=== PATIENT | female | born 1970 | race Caucasian/White ===

== ENCOUNTER 2016-12-13 13:30 | Emergency (ER) | payer BC ==
[2016-12-13 14:03] VITALS: BP 129/89; PULSE 70; TEMP 98.8
--- NOTE | 2016-12-13 14:03 | PDOC ---
History of Present Illness - General History Source: Patient, Old Records Exam Limitations: No Limitations - History of Present Illness Initial Comments: 12/13/16 15:35 The patient is a 46 year old female with a past medical history of fibromyalgia , HLD, TMJ, and RA, who presents to the emergency department today s/p mechanical fall with nausea and severe diffuse heachache. The patient stated that this morning, she heard her son yell, ran out of bed partially awake, slipped on a wet floor and hit her head. The patient is unsure if she lost consciousness, but awoke on the floor feeling dazed and not remembering falling. The patient noted she was able to get up and was ambulatory. The patient stated that she drove her son to school and then went back to sleep. The patient went to her regular neurology appointment for fibromyalgia. The neurologist advised her to go the the emergency department to check for a head bleed. <Koby Rocha - Last Filed: 12/13/16 16:36> <Sanjay Francis - Last Filed: 12/13/16 16:51> - General Chief Complaint: Injury Stated Complaint: CONCUSSION Time Seen by Provider: 12/13/16 14:02 Past History <Koby Rocha - Last Filed: 12/13/16 16:36> - Past Medical History Anemia: No Asthma: No Cancer: No Cardiac Disorders: No CVA: No COPD: No CHF: No Dementia: No Diabetes: No GI Disorders: Yes (IBS) Disorders: No HTN: No Hypercholesterolemia: No Liver Disease: No Psychiatric Problems: Yes (ANXIETY) Seizures: No Thyroid Disease: No - Surgical History Abdominal Surgery: No Appendectomy: No Cardiac Surgery: No Cholecystectomy: No Lung Surgery: No Neurologic Surgery: No Orthopedic Surgery: No - Psycho/Social/Smoking Cessation Hx Anxiety: Yes Suicidal Ideation: No Smoking Status: No Smoking History: Current every day smoker Have you smoked in the past 12 months: Yes Number of Cigarettes Smoked Daily: 10 'Breaking Loose' booklet given: 02/14/14 Hx Alcohol Use: No Drug/Substance Use Hx: No Substance Use Type: None Hx Substance Use Treatment: No <Sanjay Francis - Last Filed: 12/13/16 16:51> - Past Medical History Allergies/Adverse Reactions: Allergies Allergy/AdvReac Type Severity Reaction Status Date / Time codeine [Codeine] Allergy Severe Rash Verified 01/18/15 15:06 Home Medications: Ambulatory Orders Sertraline HCl [Zoloft -] 250 mg PO DAILY 02/11/14 Meloxicam [Mobic -] 15 mg PO HS 10/29/14 Clonazepam [KlonoPIN] 0.5 mg PO DAILY 01/18/15 Oxycodone HCl 5 mg PO Q4H PRN 02/21/15 Atorvastatin Ca [Lipitor] 10 mg PO HS 12/13/16 Chlorzoxazone [Lorzone] 375 mg PO TID PRN 12/13/16 Clonazepam [Klonopin] 1 mg PO HS 12/13/16 Gabapentin [Neurontin -] 400 mg PO BID 12/13/16 Oxymorphone HCl [Opana ER] 30 mg PO DAILY 12/13/16 Review of Systems - Review of Systems Comments:: 12/13/16 15:45 CONSTITUTIONAL: Absent: Fever, Chills, Diaphoresis, Generalized Weakness, Malaise, Loss of Appetite HEENT: Absent: Rhinorrhea, Nasal Congestion, Throat Pain, Throat Swelling, Difficulty Swallowing, Mouth Swelling, Ear Pain. CARDIOVASCULAR: Absent: Chest Pain, Syncope, Palpitations, Irregular Heart Rate, Lightheadedness , Peripheral Edema RESPIRATORY: Absent: Cough, Shortness of Breath, SOB with Exertion, Orthopnea, Wheezing, Stridor, Hemoptysis GASTROINTESTINAL: Present: Nausea Absent: Abdominal pain, Abdominal Distension, Nausea, Diarrhea, Constipation, Melena, Hematochezia MUSCULOSKELETAL: Present: Neck Pain Absent: Joint Swelling, Back pain. NEUROLOGIC: Present: Headache. Absent: Paresthesias, Focal weakness, Vertigo, Lightheadedness, Unsteady Gait, Seizure, Mental Status Changes, Incontinence PSYCHIATRIC: Absent: Anxiety, Depression <Koby Rocha - Last Filed: 12/13/16 16:36> *Physical Exam - Vital Signs Last Vital Signs Temp Pulse Resp BP Pulse Ox 98.8 F 70 16 129/89 97 12/13/16 13:51 12/13/16 13:51 12/13/16 13:51 12/13/16 13:51 12/13/16 13:51 - Physical Exam Comments: 12/13/16 15:43 GENERAL: The patient is awake, alert, and fully oriented, in no acute distress. HEAD: Normal with no signs of trauma. No bruising, swelling, lacerations, or abrasions. EYES: Pupils equal, round and reactive to light, extraocular movements intact, sclera anicteric, conjunctiva clear. ENT: Ears normal, nares patent, oropharynx clear without exudates. Moist mucous membranes. NECK: Normal range of motion but with pain on movement, supple without lymphadenopathy, JVD, or masses. LUNGS: Breath sounds equal, clear to auscultation bilaterally. No wheezes, and no crackles. HEART: Regular rate and rhythm, normal S1 and S2 without murmur, rub or gallop. ABDOMEN: Soft, nontender, normoactive bowel sounds. No guarding, no rebound. No masses. EXTREMITIES: Normal range of motion, no edema. No clubbing or cyanosis. No cords , erythema, or tenderness. SKIN: Warm, Dry, normal turgor, no rashes or lesions noted. NEURO: Mental status: The patient is oriented x3. Cranial nerves: Cranial nerves II through XII are intact Motor: The upper extremities are 5 over 5 in all muscle groups. The lower extremities are 5 over 5 in all muscle groups. Sensation: Sensation is intact to light touch throughout. Cerebellar: Czxpbn-[id number]-ghwt is normal in both upper extremities. Heel-knee- rivera is normal in both lower extremities. Reflexes: 2+ and symmetric in the upper and lower extremities. <Koby Rocha - Last Filed: 12/13/16 16:36> Medical Decision Making - Medical Decision Making 12/13/16 16:47 Patient is a 46-year-old woman who presents after a slip and fall at home with a head injury this morning. She had a loss of consciousness and some brief confusion but then was able to go about her normal activities. She presented to her neurologist for follow-up of her fibromyalgia and was noted to have these symptoms after head injury. She has diffuse headache as well as some neck pain. On examination, there was no visible trauma to the head. She had diffuse neck pain, mostly in the lateral regions, but also with range of motion. Based upon her progressive headache after head injury, a CT scan of the head and cervical spine was performed. They were both normal on radiology read as well as upon my review. Impression: Cerebral concussion without fracture or bleed. Cervical neck sprain without fracture or dislocation. Plan: Patient is artery on heavy-duty pain medications at home for fibromyalgia. She will take nonsteroidals in addition as needed. She will follow-up with her neurologist. 12/13/16 16:51 The scribe's documentation has been prepared under my direction and personally reviewed by me in its entirety. I have confirmed that the note above accurately reflects all work, treatment, procedures, and medical decision- making performed by me. <Sanjay Francis - Last Filed: 12/13/16 16:51> *DC/Admit/Observation/Transfer - Attestations Scribe Attestion: 12/13/16 16:00 Documentation prepared by Koby Rocha, acting as infertility medical assistant for Sanjay Francis MD. <Koby Rocha - Last Filed: 12/13/16 16:36> - Discharge Dispostion Admit: No <Sanjay Francis - Last Filed: 12/13/16 16:51> Diagnosis at time of Disposition: Cerebral concussion Qualifiers: Encounter type: initial encounter Loss of consciousness presence/duration: with LOC of 30 min or less Qualified Code(s): S06.0X1A - Concussion with loss of consciousness of 30 minutes or less, initial encounter - Discharge Dispostion Disposition: HOME Condition at time of disposition: Stable - Referrals Referrals: Dick Hollins MD [Primary Care Provider] - - Patient Instructions Printed Discharge Instructions: DI for Closed Head Injury Additional Instructions: Today you were evaluated after a head and neck injury. The CT scan of the head and neck is normal. You are likely having symptoms of concussion, including headache and neck stiffness. Continue to take your pain medications at home. Rest and relax until the pain improves. Follow-up with your neurologist. For any severe symptoms, you can return to the emergency department.
[2016-12-13] MEDS ORDERED: OXYCODONE/APAP 5/325MG COMBO TABLET PO ONE (16:23)
[2016-12-13] MEDS ORDERED: NAPROXEN 375 MG TABLET (FP) PO ONE (16:23)
[2016-12-13] MEDS ORDERED: NAPROXEN 375 MG TABLET (FP) ONE (16:29)
[2016-12-13] MEDS ORDERED: OXYCODONE/APAP 5/325MG COMBO TABLET ONE (16:29)
== END 2016-12-13 16:54 | disposition home or self-care (01) ==
LOC: FER 13:30
DX: S06.0X1A Concussion with loss of consciousness of 30 minutes or less, initial encounter (principal); W18.39XA Other fall on same level, initial encounter; Y93.89 Activity, other specified; Y92.009 Unspecified place in unspecified non-institutional (private) residence as the place of occurrence of the external cause; M79.7 Fibromyalgia; F41.9 Anxiety disorder, unspecified; F17.210 Nicotine dependence, cigarettes, uncomplicated
CPT/HCPCS: 70450-TC; 72125-TC; 99282-25

== ENCOUNTER 2017-10-03 08:18 | Inpatient (IN) | payer BC ==
--- NOTE | 2017-10-03 08:46 | PDOC ---
History of Present Illness - History of Present Illness Initial Comments: 10/03/17 09:15 The patient is a 47 year old female with a history of Fibromyalgia, IBS, anxeity who presents for evaluation of right sided chest pain with associated SOB. The patient reports that 1 day ago she received trigger point injections for her fibromyalgia along her right sided upper back and right shoulder. Over the night, she states that she developed right sided chest pain that she describes as a heaviness and pressure worse with deep inspiration and with some radiation into her neck. She denies having pain similar to this in the past. She denies any recent long travel, leg swelling, control use, or history of DVT/PE. She denies fevers, chills, cough, vomiting, abdominal pain, or changes with bowel movements or urination. <Kingsley Hyde - Last Filed: 10/03/17 12:04> <Kwasi Ellis - Last Filed: 10/05/17 15:27> - General Chief Complaint: Chest Pain Stated Complaint: CHEST PAIN Time Seen by Provider: 10/03/17 08:28 Past History - Past Medical History Anemia: No Asthma: No Cancer: No Cardiac Disorders: No CVA: No COPD: No CHF: No Dementia: No Diabetes: No GI Disorders: Yes (IBS) Disorders: No HTN: No Hypercholesterolemia: No Liver Disease: No Psychiatric Problems: Yes (ANXIETY) Seizures: No Thyroid Disease: No Other medical history: FIBROMYALGIA - Surgical History Abdominal Surgery: No (CYST REMOVED FROM OVARY) Appendectomy: No Cardiac Surgery: No Cholecystectomy: No Lung Surgery: No Neurologic Surgery: No Orthopedic Surgery: No - Suicide/Smoking/Psychosocial Hx Smoking Status: No Smoking History: Current every day smoker Have you smoked in the past 12 months: Yes Number of Cigarettes Smoked Daily: 10 Information on smoking cessation initiated: No 'Breaking Loose' booklet given: 02/14/14 Hx Alcohol Use: No Drug/Substance Use Hx: No Substance Use Type: None Hx Substance Use Treatment: No <Kingsley Hyde - Last Filed: 10/03/17 12:04> <Kwasi Ellis - Last Filed: 10/05/17 15:27> - Past Medical History Allergies/Adverse Reactions: Allergies Allergy/AdvReac Type Severity Reaction Status Date / Time codeine [Codeine] Allergy Severe Rash Verified 10/03/17 08:23 Home Medications: Ambulatory Orders Sertraline HCl [Zoloft -] 250 mg PO DAILY 02/11/14 Clonazepam [KlonoPIN] 0.5 mg PO DAILY 01/18/15 Chlorzoxazone [Lorzone] 500 mg PO BID PRN 12/13/16 Clonazepam [Klonopin] 1 mg PO HS 12/13/16 Gabapentin [Neurontin -] 400 mg PO BID 12/13/16 Oxymorphone HCl [Opana ER] 30 mg PO BID 12/13/16 Review of Systems - Review of Systems Comments:: 10/03/17 09:21 Constitutional: No fevers, chills, fatigue, malaise HEENT: No Rhinorrhea, nasal congestion, visual changes Cardiovascular: Chest pain. No syncope, palpitations, lightheadedness Respiratory: SOB. No Cough, Hemoptysis, Gastrointestinal: Nausea. No Abdominal pain, Vomiting, Constipation, Diarrhea, Melena Genitourinary: No Dysuria, Frequency, Urgency, Hesitancy, Hematuria, Flank pain Musculoskeletal: No Myalgia, arthralgia Skin: No rashes, bruising, pallor Neurologic: No Headache, Dizziness, Numbness, Weakness, or Tingling Psychiatric: No Hallucinations. No SI or HI <Kingsley Hyde - Last Filed: 10/03/17 12:04> *Physical Exam - Vital Signs Last Vital Signs Temp Pulse Resp BP Pulse Ox 98.2 F 65 18 146/87 97 10/03/17 08:19 10/03/17 08:19 10/03/17 08:19 10/03/17 08:19 10/03/17 08:19 - Physical Exam Comments: 10/03/17 09:22 General Appearance: Nourished. No Apparent Distress HEENT: EOMI, TYLOR. No Pharyngeal Erythema, Tonsillar Exudate, Tonsillar Erythema Neck: No Cervical Lymphadenopathy Respiratory/Chest: Lungs Clear, Decreased breath sounds on the right. No Crackles, Rales, Rhonchi, Wheezing Cardiovascular: Regular Rhythm, Regular Rate. No Murmur, Gallops, Rubs Gastrointestinal/Abdominal: Normal Bowel Sounds, Soft. No Guarding, Rebound, Tenderness Musculoskeletal: No CVA Tenderness Extremity: Normal Capillary Refill Integumentary: Normal Color, Dry, Warm Neurologic: Fully Oriented, Alert, Normal Mood/Affect, Normal Response, <Kingsley Hyde - Last Filed: 10/03/17 12:04> - Vital Signs Last Vital Signs Temp Pulse Resp BP Pulse Ox 98.8 F 47 L 18 134/71 100 10/05/17 10:00 10/05/17 10:00 10/05/17 10:00 10/05/17 10:00 10/04/17 21:00 <Kwasi Ellsi - Last Filed: 10/05/17 15:27> Heart Score/ECG Review #1 ECG reviewed & interpreted by me at: 09:41 General ECG Interpretation: Sinus Rhythm, Normal Rate, Normal Intervals, No acute ischemic changes Compared to previous ECG there are: No significant change <Kingsley Hyde - Last Filed: 10/03/17 12:04> ED Treatment Course - LABORATORY CBC & Chemistry Diagram: 10/03/17 08:55 10/03/17 08:55 <Kingsley Hyde - Last Filed: 10/03/17 12:04> - LABORATORY CBC & Chemistry Diagram: 10/04/17 06:30 10/04/17 06:30 - ADDITIONAL ORDERS Additional order review: 10/03/17 08:55 RBC 4.91 MCV 87.8 MCHC 33.4 RDW 13.8 MPV 9.1 D Neutrophils % 88.2 H D Lymphocytes % 9.4 D Monocytes % 1.9 L Eosinophils % 0.0 D Basophils % 0.5 - RADIOLOGY Radiology Studies Ordered: Category Date Time Status PLEURAL DRAIN (CHEST TUBE) W [RADS] Stat Radiology 10/03/17 11:55 Taken - Medications Given in the ED: ED Medications Discontinued Medications Generic Name Dose Route Start Last Admin Trade Name Jovannyq PRN Reason Stop Dose Admin Acetaminophen 975 mg 10/03/17 11:14 10/03/17 11:21 Tylenol - PO 10/03/17 11:15 975 mg ONCE ONE Administration Hydromorphone HCl 0.5 mg 10/03/17 11:24 10/03/17 11:27 Dilaudid Injection - IVPUSH 10/03/17 11:25 0.5 mg ONCE ONE Administration Hydromorphone HCl 0.5 mg 10/03/17 14:10 10/03/17 14:15 Dilaudid Injection - IVPUSH 10/03/17 14:11 0.5 mg ONCE ONE Administration Hydromorphone HCl 1 mg 10/04/17 09:06 10/05/17 06:14 Dilaudid Injection - IVPB 1 mg Q3H PRN Administration PAIN Lorazepam 0.5 mg 10/03/17 12:44 10/03/17 13:01 Ativan Injection - IVPUSH 10/03/17 12:45 0.5 mg ONCE ONE Administration Morphine Sulfate 4 mg 10/03/17 09:03 10/03/17 09:16 Morphine Injection - IVPUSH 10/03/17 09:04 4 mg ONCE ONE Administration Morphine Sulfate 1 mg 10/03/17 12:48 10/03/17 23:07 Morphine Sulfate IVPUSH 1 mg Q4H PRN Administration PAIN Sertraline HCl 150 mg 10/04/17 10:00 10/04/17 09:24 Zoloft - PO 150 mg DAILY TONY Administration Sertraline HCl 100 mg 10/04/17 10:30 10/04/17 15:51 Zoloft - PO 10/04/17 10:31 100 mg ONCE ONE Administration <Kwasi Ellis - Last Filed: 10/05/17 15:27> Medical Decision Making - Medical Decision Making 10/03/17 09:22 The patient is a 47 year old female with a history of Fibromyalgia, IBS, anxeity who presents for evaluation of right sided chest pain with associated SOB. Differential includes but is not limited to: Pneumothorax, Pneumonia, PE, ACS, infectious, metabolic derangement. Given the patient's described pain of chest heaviness worse with inspiration as well as some decreased breath sounds on the right, we are concerned for a possible pneumothorax and will obtain a chest plain film to evaluate. We have a low suspicion for ACS given the patient 's symptoms and a normal EKG done in triage. We also have a low suspicion for PE at this time given her risk factors. We will obtain a cbc, cmp, troponin, inr, and D-dimer to evaluate further. We will treat her pain with morphine and continue to monitor and reassess. 10/03/17 11:25 Chest plain film demonstrates moderate pneumothorax without tension as read by our radiologist. CBC demonstrates a elevated wbc to 11.2. cmp, troponin, inr are unremarkable. D-dimer is mildly elevated to 324 although we have a very low suspicion for PE and have a good explanation for the patient's chest pain and SOB given her pneumothorax. We discussed the case with Thoracic surgery given that only the lower lung appears collapsed due to the pneumothorax and complicates the placement of a pig tail catheter. They recommended that IR should place the catheter to avoid complications and we agreed with this plan. The patient will require admission for further management and IR placement of a pig tail catheter. We discussed the results and the plan with the patient who voiced understanding and is agreeable with the plan. 10/03/17 11:39 We discussed with IR who reviewed the patient's images and will place the chest tube. 10/03/17 12:04 We discussed the case with Dr. Crisostomo who accepted the patient for admission. <Kingsley Hyde - Last Filed: 10/03/17 12:04> - Medical Decision Making 10/05/17 15:27 CRITICAL CARE DOCUMENTATION: I spent ~35 minutes of Critical Care time, excluding separately billable procedures, involving high complexity decision making to assess, manipulate and support vital system function(s) to treat single or multiple vital organ system failure and/or to prevent further life threatening deterioration of the patient' s condition. <Kwasi Ellis - Last Filed: 10/05/17 15:27> *DC/Admit/Observation/Transfer - Discharge Dispostion Admit: Yes <Kingsley Hyde - Last Filed: 10/03/17 12:04> <Kwasi Ellis - Last Filed: 10/05/17 15:27> Diagnosis at time of Disposition: Pneumothorax Qualifiers: Pneumothorax type: postprocedural Qualified Code(s): J95.811 - Postprocedural pneumothorax - Discharge Dispostion Condition at time of disposition: Stable
--- NOTE | 2017-10-03 08:56 | PDOC ---
Attending Attestation - Resident Resident Name: Kingsley Hyde - ED Attending Attestation I have performed the following: I have examined & evaluated the patient, The case was reviewed & discussed with the resident, I agree w/resident's findings & plan, Exceptions are as noted - HPI HPI: 10/03/17 10:51 47y F hx of fibromyalgia, ibs, anxiety, presents with R sided cp and sob dior tis pleuritic in nature, pt is s/p trigger point injections yesteday. on exam pt has decreased breath sounds in the right base, no respiratory distress, no significant focal tenderness. pt anxious appearing, but in no acute respiratory distress. cxr noted for right lower lobar ptx will dw CT surgery regarding best course forward -? posisble pig tail here vs in IR due to location - Physicial Exam PE: 10/05/17 09:11 see above - Medical Decision Making 10/03/17 11:26 will admit pt for IR placement of pigtail based on location of pneumothorax Heart Score/ECG Review - ECG Impressions Comment:: 10/03/17 08:39 Twelve-lead EKG was performed and reviewed by me. There is normal sinus rhythm with a normal rate. rate of 60 The axis is normal. The intervals are normal. There is normal R wave progression There are no ST or T wave abnormalities. Impression: Normal twelve-lead EKG
[2017-10-03] MEDS ORDERED: morphine CARPU-JECT 4 MG/1 ML DISP.SYRIN IVPUSH ONE (09:03)
[2017-10-03 09:08] LABS: URINE APPEARANCE CLEAR; URINE BILIRUBIN NEGATIVE (NEGATIVE); URINE BLOOD NEGATIVE (NEGATIVE); URINE COLOR YELLOW; URINE GLUCOSE (UA) NEGATIVE (NEGATIVE); URINE KETONE NEGATIVE (NEGATIVE); URINE NITRITE NEGATIVE (NEGATIVE); URINE PROTEIN NEGATIVE (NEGATIVE); URINE UROBILINOGEN NEGATIVE mg/dL (0.2-1.0)
[2017-10-03] MEDS ORDERED: morphine SULFATE 4 MG/ML VIAL ONE ×2 (09:09→16:07)
[2017-10-03 09:21] LABS: BASOPHIL 0.5 % (0-2.0); MCH 29.3 pg (25.7-33.7); MCHC 33.4 g/dl (32.0-36.0); MEAN CELL VOLUME 87.8 fl (80-96); MEAN PLT VOLUME 9.1 fl (7.5-11.1); NEUTROPHILS 88.2 % (42.8-82.8); PLATELET COUNT 227 K/MM3 (134-434); RDW 13.8 % (11.6-15.6); WHITE BLOOD COUNT 11.2 K/mm3 (4.0-10.0)
[2017-10-03 09:30] LABS: ALBUMIN 3.8 g/dl (3.4-5.0); ANION GAP 11 (8-16); BILIRUBIN,TOTAL 0.4 mg/dL (0.2-1.0); CALCIUM 9.3 mg/dL (8.5-10.1); CO2 24 mmol/L (21-32); CREATININE 0.7 mg/dL (0.55-1.02); GLUCOSE,RANDOM 124 mg/dL (74-106); SGOT/AST 21 U/L (15-37); SGPT/ALT 41 U/L (12-78); TOT PROT 7.3 g/dl (6.4-8.2)
[2017-10-03 09:33] LABS: ALK PHOS 60 U/L (45-117); CPK 90 IU/L (26-192); TROPONIN I < 0.02 ng/ml (0.00-0.05)
--- NOTE | 2017-10-03 09:40 | EKG ---
Test Reason : Blood Pressure : / mmHG Vent. Rate : 060 BPM Atrial Rate : 060 BPM P-R Int : 154 ms QRS Dur : 082 ms QT Int : 450 ms P-R-T Axes : 028 065 073 degrees QTc Int : 450 ms NORMAL SINUS RHYTHM NORMAL ECG WHEN COMPARED WITH ECG OF 29-OCT-2014 20:10, NO SIGNIFICANT CHANGE WAS FOUND Confirmed by JAMILAH WILD MD ([id number]) on 10/03/2017 9:39:34 AM Referred By: Confirmed By:JAMILAH WILD MD
[2017-10-03 09:46] LABS: INR 0.96 (0.82-1.09); PROTHROMBIN TIME (PATIENT) 10.8 SEC (9.98-11.88)
[2017-10-03 09:49] LABS: ACTIVATED PTT 30.4 SECONDS (26.9-34.4)
[2017-10-03] MEDS ORDERED: ACETAMINOPHEN 325 MG TABLET (FP) PO ONE (11:14)
[2017-10-03] MEDS ORDERED: ACETAMINOPHEN 325 MG TABLET (FP) ONE (11:22)
[2017-10-03] MEDS ORDERED: HYDROmorphone HCL CARPU-JECT 1 MG/1 ML DISP.SYRIN IVPUSH ONE ×2 (11:24→14:10)
[2017-10-03] MEDS ORDERED: HYDROmorphone HCL CARPU-JECT 1 MG/1 ML DISP.SYRIN ONE ×2 (11:29→14:10)
[2017-10-03] MEDS ORDERED: CHLORZOXAZONE 375 MG PO PRN (12:46)
[2017-10-03] MEDS ORDERED: LORazepam 2 MG/ML SDV VIAL ONE (12:47)
[2017-10-03] MEDS ORDERED: ONDANSETRON 4 MG/2 ML VIAL IVPUSH PRN (12:48)
--- NOTE | 2017-10-03 12:51 | HP ---
Admitting History and Physical - Primary Care Physician PCP: Dick Hollins - Admission Chief Complaint: My back and chest hurts History of Present Illness: Ms Galvan is a pleasant 47 year old female who comes in with chest and back pain. She has a history of fibromyalgia and received pressure point injections yesterday. She was feeling well and went home, but at night began to develop pain in her back. Throughout the night the pain worsened and began to radiate to her chest and neck. Then she became short of breath secondary to feeling like she cannot take a full breath. Because of that she came in. She denies fevers, chills, lightheadedness, dizziness, passing out, nausea, vomiting, abdominal pain, diarrhea, constipation, difficulty or pain on urination, or swelling. - Past Medical History Rheumatology: Yes: Fibromyalgia - Past Surgical History Past Surgical History: Yes: Tonsillectomy - Smoking History Smoking history: Current every day smoker Have you smoked in the past 12 months: Yes Aproximately how many cigarettes per day: 10 - Alcohol/Substance Use Hx Alcohol Use: No History of Substance Use: reports: None - Social History ADL: Independent History of Recent Travel: No Home Medications - Allergies Allergies/Adverse Reactions: Allergies Allergy/AdvReac Type Severity Reaction Status Date / Time codeine [Codeine] Allergy Severe Rash Verified 10/03/17 08:23 - Home Medications Home Medications: Ambulatory Orders Sertraline HCl [Zoloft -] 250 mg PO DAILY 02/11/14 Meloxicam [Mobic -] 15 mg PO HS 10/29/14 Clonazepam [KlonoPIN] 0.5 mg PO DAILY 01/18/15 Oxycodone HCl 5 mg PO Q4H PRN 02/21/15 Atorvastatin Ca [Lipitor] 10 mg PO HS 12/13/16 Chlorzoxazone [Lorzone] 375 mg PO TID PRN 12/13/16 Clonazepam [Klonopin] 1 mg PO HS 12/13/16 Gabapentin [Neurontin -] 400 mg PO BID 12/13/16 Oxymorphone HCl [Opana ER] 30 mg PO DAILY 12/13/16 Family Disease History - Family Disease History Family Disease History: Diabetes: Mother, Heart Disease: Father, Mother, Other: Sister (MS) Review of Systems Findings/Remarks: Full review of systems obtained, as per HPI and otherwise negative Physical Examination Vital Signs: Vital Signs Temperature 36.8 C 10/03/17 08:19 Pulse Rate 55 L 10/03/17 12:12 Respiratory Rate 18 10/03/17 12:12 Blood Pressure 131/81 10/03/17 12:12 O2 Sat by Pulse Oximetry (%) 100 10/03/17 12:12 Constitutional: Yes: Well Nourished, No Distress, Calm Eyes: Yes: Conjunctiva Clear, EOM Intact, PERRL HENT: Yes: Atraumatic, Normocephalic Cardiovascular: Yes: Regular Rate and Rhythm. No: Gallop, Murmur, Rub Respiratory: Yes: Regular, CTA Bilaterally, Other (decreased breath sounds right base). No: Rales, Rhonchi, Wheezes Gastrointestinal: Yes: Normal Bowel Sounds, Soft. No: Distention, Tenderness Extremities: Yes: WNL Edema: No Labs: CBC, BMP 10/03/17 08:55 10/03/17 08:55 Imaging - Results Chest X-ray: Report Reviewed, Image Reviewed Problem List - Problems (1) Pneumothorax Assessment/Plan: -suspect secondary to injections yesterday, but possibly spontaneous -chest tube today -100% NRB to help with resorption -pulmonary consult Code(s): J93.9 - PNEUMOTHORAX, UNSPECIFIED Qualifiers: Pneumothorax type: postprocedural Qualified Code(s): J95.811 - Postprocedural pneumothorax; J95.811 - Postprocedural pneumothorax (2) Fibromyalgia Assessment/Plan: -continue home regimen Code(s): M79.7 - FIBROMYALGIA
[2017-10-03 13:40] LABS: URINE LEUK ESTERASE Negative (NEGATIVE)
--- NOTE | 2017-10-03 15:11 | CONSULT ---
Consult Consult Specialty:: Thoracic Surgery Referred by:: ED Reason for Consultation:: Right pneumothorax - History of Present Illness Chief Complaint: Shortness of breath History of Present Illness: A 47-year-old female with history of fibromyalgia and chronic tobacco use who presented to [facility] with complaints of worsening right chest pain/pressure, SOB and KIRK. She reports that she developed her respiratory symptoms after trigger point injection for her fibromyalgia yesterday. Her workup including chest x-ray showed right pneumothorax. Subsequently she underwent pigtail catheter placement per IR. A repeat cxr showed resolution of right pneumothorax. She denies fever, chills, cough, hemoptysis and sputum production. 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: Alzheimer's, CVA, Dementia, Migraine, Multiple Sclerosis, Peripheral Neuropathy, Parkinson's, Seizure, Syncope, TIA, Vertigo, Other Cardio/Vascular: No: AFIB, Aneurysm, Aortic Insufficiency, Aortic Stenosis, CAD , CHF, Deep Vein Thrombosis, HTN, Hyperlipdemia, WI, Mitral Insufficiency, Mitral Stenosis, Murmur, Pulmonary Hypertension, Other Pulmonary: No: Asthma, Bronchitis, Cancer, COPD, O2 Dependent, Pneumonia, Previously Intubated, Pulmonary Embolus, Pulmonary Fibrosis, Sleep Apnea, Other Gastrointestinal: Yes: Other (IBS) Hepatobiliary: No: Cirrhosis, Cholelithiasis, Cholecystitis, Choledocholithiasis , Hepatitis A, Hepatitis B, Hepatitis C, Other Renal/: Yes: UTI Reproductive: No: Ectopic , Endometriosis, Fibroids, PID, Polycystic Ovary Syndrome, Postmenopausal, Other Heme/Onc: No: Anemia, B12 Deficiency, Bleeding Disorder, Cancer, Current Chemotherapy, Current Radiation Therapy, Hemochromatosis, Hypercoaguable State, Myeloproliferative Synd, Sickle Cell Disease, Sickle Cell Trait, Thrombocytopenia, Other Infectious Disease: No: AIDS, C-Diff, Herpes Zoster, HIV, MRSA, STD's, Tuberculosis, VREF, Other Psych: No: Addictions, Anxiety, Bipolar, Depression, Panic, Psychosis, Schizophrenia, Other Musculoskeletal: No: Bursitis, Chronic low back pain, Hemiparesis, Hemiplegia, Osteoarthritis, Paraplegia, Other Rheumatology: Yes: Fibromyalgia ENT: No: Allergic Rhinitis, Sinusitis, Other Endocrine: No: Santy's Disease, Sofia's Disease, Diabetes Insipidus, Diabetes Mellitus, Hyperparathyroidism, Hyperthyroidism, Hypothyroidism, Osteopenia, SIADH, Other Dermatology: No: Basal Cell, Cellulitis, Eczema, Melanoma, Psoriasis, Squamous Cell, Other - Past Surgical History Past Surgical History: No: None, AAA Repair, AICD, Amputation, Appendectomy, Arthrosocopy, AV Fistula/Graft, Bariatric Surgery, Breast Biopsy, Bypass, CABG, Carotid Endarterectomy, Cataract Removal, Cholecystectomy, Colectomy, Colonoscopy, Colostomy, Craniotomy, , Cystectomy, Hernia Repair, Hysterectomy, Ileal Conduit, Ileosotomy, Joint Replacement, Kidney Transplant, Laminectomy, Liver Transplant, Mastectomy, Nephrectomy, Oopherectomy, Orchiectomy, Permanent Pacemaker, Prostatectomy, Splenectomy, Stent, Thoracotomy , TURP, Tonsillectomy, Tubal Ligation, Upper Endoscopy, Valve Replacement, Vasectomy, Vein Stripping/Ligation - Alcohol/Substance Use Hx Alcohol Use: No - Smoking History Smoking history: Current every day smoker Have you smoked in the past 12 months: Yes Aproximately how many cigarettes per day: 10 Home Medications - Allergies Allergies/Adverse Reactions: Allergies Allergy/AdvReac Type Severity Reaction Status Date / Time codeine [Codeine] Allergy Severe Rash Verified 10/03/17 08:23 - Home Medications Home Medications: Ambulatory Orders Sertraline HCl [Zoloft -] 250 mg PO DAILY 02/11/14 Meloxicam [Mobic -] 15 mg PO HS 10/29/14 Clonazepam [KlonoPIN] 0.5 mg PO DAILY 01/18/15 Oxycodone HCl 5 mg PO Q4H PRN 02/21/15 Atorvastatin Ca [Lipitor] 10 mg PO HS 12/13/16 Chlorzoxazone [Lorzone] 375 mg PO TID PRN 12/13/16 Clonazepam [Klonopin] 1 mg PO HS 12/13/16 Gabapentin [Neurontin -] 400 mg PO BID 12/13/16 Oxymorphone HCl [Opana ER] 30 mg PO DAILY 12/13/16 Family Disease History - Family Disease History Family History: Unremarkable Review of Systems - Review of Systems Constitutional: reports: No Symptoms Eyes: reports: No Symptoms HENT: reports: No Symptoms Neck: reports: No Symptoms Cardiovascular: reports: No Symptoms Respiratory: reports: SOB, SOB on Exertion Gastrointestinal: reports: Other (IBS) Genitourinary: denies: No Symptoms, Burning, Discharge, Dysuria, Flank Pain, Frequency, Hematuria, Incontinence, Lesions, Menses, Pain, Testicular Mass, Testicular Pain, Testicular Swelling, Urgency, Vaginal Bleeding, Other Breasts: denies: No Symptoms Reported, See HPI, Breast Implants, Discharge from Nipple, Lumps, Pain, Skin Changes, Other Musculoskeletal: reports: Other (fibromyalgia) Integumentary: denies: No Symptoms, Blister, Bruising, Change in Color, Eczema, Erythema, Incision, Lesions, Lump, Pallor, Pruritis, Rash, Wound, Other Neurological: denies: No Symptoms, Change in LOC, Change in Speech, Confusion, Dizziness, Headache, Incoordination, Numbness, Parasthesia, Pre-Existing Deficit , Seizure, Syncope, Tremors, Unsteady Gait, Weakness, Other Endocrine: denies: No Symptoms, Excessive Sweating, Flushing, Increased Hunger, Increased Thirst, Intolerance to Cold, Intolerance to Heat, Unexplained Weight Gain, Unexplained Weight Loss, Other Hematology/Lymphatic: denies: No Symptoms, Easily Bruised, Excessive Bleeding, Swollen Glands, Other Psychiatric: denies: No Symptoms, Altered Sleep Pattern, Anxiety, Depression, Hallucinations, Panic, Paranoia, Suicidal, Other Physical Exam Vital Signs: Vital Signs Temperature 98.2 F 10/03/17 08:19 Pulse Rate 66 10/03/17 14:27 Respiratory Rate 14 10/03/17 13:44 Blood Pressure 145/84 10/03/17 13:44 O2 Sat by Pulse Oximetry (%) 100 10/03/17 14:27 Constitutional: Yes: Well Nourished, Anxious, Mild Distress Eyes: Yes: WNL HENT: Yes: WNL Neck: Yes: WNL Cardiovascular: Yes: WNL Respiratory: Yes: WNL, SOB, Other (right chest tube. small forced expiratory air leak.) Gastrointestinal: Yes: WNL ...Rectal Exam: Yes: Deferred Renal/: Yes: WNL Musculoskeletal: Yes: WNL Extremities: Yes: WNL Edema: No Integumentary: Yes: WNL Neurological: Yes: WNL ...Motor Strength: WNL Psychiatric: Yes: WNL Imaging - Results Chest X-ray: Report Reviewed, Image Reviewed Problem List - Problems (1) Pneumothorax Code(s): J93.9 - PNEUMOTHORAX, UNSPECIFIED Qualifiers: Pneumothorax type: unspecified pneumothorax Qualified Code(s): J93.9 - Pneumothorax, unspecified; J93.9 - Pneumothorax, unspecified Assessment/Plan A 47-year-old female with history of fibromyalgia and current tobacco use, who presented to [facility] with SOB and KIRK. Her radiographic studies were reviewed and discussed with the patient and her family in extensive detail. She appears to have iatrogenic pneumothorax secondary to trigger point injection which may have injured the lung. She underwent pigtail catheter placement per IR service. There is no indication for thoracic surgery as she has resolution of pneumothorax. She is aware and understood her medical condition. All questions were answered in satisfactory manner. She remains stable clinically with no respiratory distress at the present time. 1. Continue supportive care and pain control 2. Continue chest tube to suction 3. Daily chest x-ray 4. Admit to medical service 5. Thank you for the interesting consult. Will follow with you.
[2017-10-03] MEDS: morphine SULFATE 4 MG/ML VIAL IVPUSH PRN ×2 (16:22→23:07)
[2017-10-03] MEDS ORDERED: oxyCODONE HCL 10 MG SUSTAINED ACTING TABLET PO SCH ×2 (17:39→22:00)
[2017-10-03 17:46] VITALS: BMI 22.1
[2017-10-03] MEDS: oxyCODONE HCL 10 MG SUSTAINED ACTING TABLET PO SCH (17:56)
[2017-10-03] MEDS: NICOTINE 7 MG/24 HOURS TOPICAL PATCH TD SCH (18:01)
[2017-10-03] MEDS: GABAPENTIN 400 MG CAPSULE (FP) PO SCH (23:03)
[2017-10-03] MEDS: DOCUSATE SODIUM 100 MG CAPSULE (FP) PO SCH (23:03)
[2017-10-03] MEDS: clonazePAM 0.5 MG TABLET PO SCH (23:03)
[2017-10-04] MEDS: oxyCODONE HCL 5 MG TABLET PO PRN (05:16)
[2017-10-04 07:28] LABS: ANION GAP 9 (8-16); CO2 26 mmol/L (21-32); CREATININE 0.6 mg/dL (0.55-1.02); GLUCOSE,RANDOM 120 mg/dL (74-106); MAGNESIUM 1.9 mg/dL (1.8-2.4); PHOSPHOROUS 3.8 mg/dL (2.5-4.9)
[2017-10-04 08:07] LABS: BASOPHIL 0.1 % (0-2.0); MCH 29.6 pg (25.7-33.7); MCHC 33.8 g/dl (32.0-36.0); MEAN CELL VOLUME 87.6 fl (80-96); MEAN PLT VOLUME 9.4 fl (7.5-11.1); NEUTROPHILS 87.8 % (42.8-82.8); PLATELET COUNT 201 K/MM3 (134-434); RDW 13.6 % (11.6-15.6)
[2017-10-04] MEDS: oxyCODONE HCL 10 MG SUSTAINED ACTING TABLET PO SCH ×2 (08:26→18:34)
--- NOTE | 2017-10-04 09:06 | PN ---
Progress Note (short form) - Note Progress Note: Patient seen and examined Chart reviewed Currently sitting up in bed, alert and appropriate and complaining of ongoing right sided chest discomfort related to the chest tube. Labs, radiologic procedures and progress notes reviewed Follow-up CXR post insertion of pigtail catheter reports resolution of pneumothrorax Selected Entries 10/03/17 10/03/17 10/04/17 17:37 21:00 06:00 Temperature 98.4 F Pulse Rate 50 L Respiratory 18 Rate Blood Pressure 112/54 O2 Sat by Pulse 100 Oximetry (%) Oxygen Delivery Room Air Method Weight 150 lb Laboratory Tests 10/03/17 10/03/17 10/03/17 08:55 08:55 08:55 WBC Hgb Hct Plt Count PT with INR 10.80 INR 0.96 PTT (Actin FS) 30.4 D-Dimer Sodium Potassium Chloride Carbon Dioxide BUN Creatinine Random Glucose Calcium Phosphorus Magnesium Total Bilirubin 0.4 AST 21 D ALT 41 D Alkaline Phosphatase 60 D Creatine Kinase 90 Troponin I < 0.02 Total Protein 7.3 Albumin 3.8 Serum , Qual Urine Color Yellow Urine Appearance Clear Urine pH 7.0 D Ur Specific Norton 1.020 Urine Protein Negative Urine Glucose (UA) Negative Urine Ketones Negative Urine Blood Negative Urine Nitrite Negative Urine Bilirubin Negative Urine Urobilinogen Negative Ur Leukocyte Esterase Negative Urine HCG, Qual Negative 10/03/17 10/03/17 10/04/17 08:55 08:55 06:30 WBC 13.0 H Hgb 14.0 Hct 41.4 Plt Count 201 PT with INR INR PTT (Actin FS) D-Dimer 349 H Sodium Potassium Chloride Carbon Dioxide BUN Creatinine Random Glucose Calcium Phosphorus Magnesium Total Bilirubin AST ALT Alkaline Phosphatase Creatine Kinase Troponin I Total Protein Albumin Serum , Qual Negative Urine Color Urine Appearance Urine pH Ur Specific Norton Urine Protein Urine Glucose (UA) Urine Ketones Urine Blood Urine Nitrite Urine Bilirubin Urine Urobilinogen Ur Leukocyte Esterase Urine HCG, Qual 10/04/17 06:30 WBC Hgb Hct Plt Count PT with INR INR PTT (Actin FS) D-Dimer Sodium 139 Potassium 3.9 Chloride 104 Carbon Dioxide 26 BUN 13 Creatinine 0.6 Random Glucose 120 H Calcium 9.0 Phosphorus 3.8 Magnesium 1.9 Total Bilirubin AST ALT Alkaline Phosphatase Creatine Kinase Troponin I Total Protein Albumin Serum , Qual Urine Color Urine Appearance Urine pH Ur Specific Norton Urine Protein Urine Glucose (UA) Urine Ketones Urine Blood Urine Nitrite Urine Bilirubin Urine Urobilinogen Ur Leukocyte Esterase Urine HCG, Qual Chest Decreased breath sounds in right lung due to pain on deep inspiration No wheezing or rhonchi Cor RRR Abd Soft Non-tender Ext No swelling No phlebitis Neuro No deficit Assessment and Plan Right sided pneumothorax Likely due to recent trigger point injection Treatment as outlined Fibromyalgia On chronic Rx for chronic pain syndrome H/O Smoking Counseling Continue current Rx Pain meds to be re-assessed
[2017-10-04] MEDS: DOCUSATE SODIUM 100 MG CAPSULE (FP) PO SCH ×2 (09:24→21:38)
[2017-10-04] MEDS: GABAPENTIN 400 MG CAPSULE (FP) PO SCH ×2 (09:24→21:38)
[2017-10-04] MEDS: NICOTINE 7 MG/24 HOURS TOPICAL PATCH TD SCH (09:25)
[2017-10-04] MEDS: clonazePAM 0.5 MG TABLET PO SCH ×2 (09:27→21:38)
[2017-10-04] MEDS: POLYETHYLENE GLYCOL 3350 119 GM BTL PO SCH (09:33)
[2017-10-04] MEDS ORDERED: SERTRALINE HCL 50 MG TABLET (FP) PO SCH (10:00)
[2017-10-04] MEDS ORDERED: OXYMORPHONE HCL 30 MG PO SCH (10:00)
[2017-10-04] MEDS ORDERED: SERTRALINE HCL 50 MG TABLET (FP) PO ONE (10:30)
[2017-10-04] MEDS: HYDROmorphone HCL CARPU-JECT 1 MG/1 ML DISP.SYRIN IVPB PRN ×4 (10:34→20:55)
--- NOTE | 2017-10-04 11:17 | PN ---
Progress Note (short form) - Note Progress Note: Keep CT to suction today Will likely water seal in am tomorrow Patient needs daily AM CXR
--- NOTE | 2017-10-04 14:54 | PN ---
Progress Note (short form) - Note Progress Note: PULMONARY CONSULTATION DICTATED 10/04/17 IMP LIKELY IATROGENIC PNEUMOTHORAX S/P PRESSURE POINT INJECTIONS FOR FIBROMYALGIA TOBACCO ABUSE PLAN CHEST TUBE PER THORACIC SURGERY F/U CHEST X-RAY ANALGESICS SUPPLEMENTAL O2 SMOKING CESSATION COUNSELED DR ANDERSON Problem List - Problems (1) Fibromyalgia Code(s): M79.7 - FIBROMYALGIA (2) Pneumothorax Code(s): J93.9 - PNEUMOTHORAX, UNSPECIFIED Qualifiers: Pneumothorax type: postprocedural Qualified Code(s): J95.811 - Postprocedural pneumothorax; J95.811 - Postprocedural pneumothorax (3) Pain Code(s): R52 - PAIN, UNSPECIFIED (4) Tobacco abuse Code(s): Z72.0 - TOBACCO USE (5) Tobacco abuse counseling Code(s): Z71.6 - TOBACCO ABUSE COUNSELING
--- NOTE | 2017-10-04 15:26 | CONS ---
DATE OF CONSULTATION: 10/04/2017 REFERRING PHYSICIAN: Wesley Crisostomo MD The patient is a 47-year-old white female with a past medical history of fibromyalgia, which she receives pressure point injections; history of tobacco use; admitted to [facility] with complaint of acute onset of right-sided chest pain. Patient, as stated before, received pressure point injections for fibromyalgia the day prior to admission. She apparently went home feeling well, but at night, started begin getting pain in the back. She said the pain was sharp in character and she was unable to take a deep breath. She denied any nausea, vomiting, diaphoresis. Denied any fevers or chills. The pain continued to worsen, at which time she was sent to the emergency room. In the ER, she had a chest x-ray performed, which revealed a 40% to 50% right-sided pneumothorax. She had a pigtail catheter inserted and subsequently transferred up to the medical floor for further management. She denies any previous history of pneumothoraces. There is no history of COPD or asthma in the past. PAST MEDICAL HISTORY: Again, includes fibromyalgia. SURGICAL HISTORY: Tonsillectomy. SOCIAL HISTORY: Tobacco use. No occupational exposures. REVIEW OF SYSTEMS: No orthopnea, no PND. Positive mild shortness of breath secondary to chest pain, positive right-sided chest pain. No cough, no hemoptysis, no abdominal pain, no lower extremity edema. CURRENT MEDICATIONS: Zofran, Tylenol, Neurontin, Zoloft, NicoDerm patch, Klonopin, MiraLAX, Dilaudid, roxycodone, oxycontin. PHYSICAL EXAMINATION: General: The patient is a well-developed, well-nourished female awake, alert, in mild distress secondary to pain, but no acute respiratory distress. Vital Signs: She is currently afebrile. Blood pressure is 130/78, respiratory rate is 18, O2 saturation is 97% on room air. HEENT: Normocephalic, atraumatic. Neck: Supple without any adenopathy. Heart: Regular with S1, S2. Chest: Clear. Abdomen: Soft; bowel sounds positive. Extremities: No cyanosis, edema. LABORATORIES: WBCs 13,000, hemoglobin 14, hematocrit 41.4, platelet count of 201,000. BUN and electrolytes essentially within normal limits. INR is normal. D-dimer of 341. Chest x-ray on admission reveals a moderate-size right pneumothorax. No evidence of tension. Repeat post chest tube and post pigtail with resolution of the right pneumothorax. IMPRESSION: Iatrogenic right pneumothorax, status post pressure point injections; fibromyalgia; history of tobacco abuse. PLAN: Continue chest tube, pigtail, wall suctioning. Obtain followup chest x-ray, supplemental O2. Continue NicoDerm patch and analgesics. TOSHIA ANDERSON M.D. [id number]
[2017-10-05] MEDS: HYDROmorphone HCL CARPU-JECT 1 MG/1 ML DISP.SYRIN IVPB PRN ×2 (00:02→06:14)
[2017-10-05] MEDS: oxyCODONE HCL 10 MG SUSTAINED ACTING TABLET PO SCH ×2 (07:06→17:37)
--- NOTE | 2017-10-05 09:39 | PN ---
Progress Note (short form) - Note Progress Note: Patient seen and examined Chart reviewed Currently sitting up in bed, alert and appropriate and complaining of ongoing right sided chest discomfort related to the chest tube. Labs, radiologic procedures and progress notes reviewed Initial follow-up CXR post insertion of pigtail catheter reported resolution of pneumothrorax. Most recent CXR reveals new RUL pneumothorax. Xray repeated this AM. Reading pending Selected Entries 10/04/17 10/05/17 21:00 06:00 Temperature 98.1 F Pulse Rate 51 L Respiratory 18 Rate Blood Pressure 135/80 O2 Sat by Pulse 100 Oximetry (%) Oxygen Delivery Nasal Cannula Method Oxygen Flow 2 Rate Chest Decreased breath sounds in right lung due to pain on deep inspiration, but appear improved overall No wheezing or rhonchi Cor RRR Abd Soft Non-tender Ext No swelling No phlebitis Neuro No deficit Assessment and Plan Right sided pneumothorax Likely due to recent trigger point injection. Treatment as outlined Fibromyalgia On chronic Rx for chronic pain syndrome Ongoing right sided chest pain Will increase dilaudid dose H/O Smoking Counseling Continue current Rx Pain meds to be re-assessed Re-check CXR this AM as ordered Review status of chest tube/wall suction apparatus
[2017-10-05] MEDS: HYDROmorphone HCL CARPU-JECT 2 MG/1 ML DISP.SYRIN IVPB PRN ×4 (10:07→22:00)
--- NOTE | 2017-10-05 10:43 | PN ---
Progress Note (short form) - Note Progress Note: some discomfort at CT site No air leak, minimal output Only small apical PTX remains Disconnected pleuravac from wall suction. CXR in am. if stable and still no evidence of air leak, will perform clamping trial and hopefully tube can be removed Jaclyn Instructed nurses on set up/function of CT/pleuravac All discussed in depth with pt. All questions answered in depth and to her satisfaction
[2017-10-05] MEDS: GABAPENTIN 400 MG CAPSULE (FP) PO SCH ×2 (10:54→22:35)
[2017-10-05] MEDS: DOCUSATE SODIUM 100 MG CAPSULE (FP) PO SCH ×2 (10:54→22:35)
[2017-10-05] MEDS: NICOTINE 7 MG/24 HOURS TOPICAL PATCH TD SCH (10:54)
[2017-10-05] MEDS: SERTRALINE HCL 50 MG TABLET (FP) PO SCH (10:54)
[2017-10-05] MEDS: clonazePAM 0.5 MG TABLET PO SCH ×2 (10:59→22:35)
[2017-10-05] MEDS: POLYETHYLENE GLYCOL 3350 119 GM BTL PO SCH (12:24)
--- NOTE | 2017-10-05 13:15 | PN ---
Progress Note, Physician History of Present Illness: PULMONARY ALERT,C/O R SIDED CHEST DISCOMFORT. CHEST X-RAY R APICAL PTX - Current Medication List Current Medications: Active Medications Acetaminophen (Tylenol -) 650 mg PO Q4H PRN PRN Reason: FEVER OR PAIN Clonazepam (Klonopin -) 0.5 mg PO BID [facility] Last Admin: 10/05/17 10:59 Dose: 0.5 mg Docusate Sodium (Colace -) 100 mg PO BID [facility] Last Admin: 10/05/17 10:54 Dose: 100 mg Gabapentin (Neurontin -) 400 mg PO BID [facility] Last Admin: 10/05/17 10:54 Dose: 400 mg Hydromorphone HCl (Dilaudid Injection -) 2 mg IVPB Q3H PRN PRN Reason: PAIN Last Admin: 10/05/17 10:07 Dose: 2 mg Nicotine (Nicoderm Patch -) 7 mg TD DAILY [facility] Last Admin: 10/05/17 10:54 Dose: 7 mg Non-Formulary Medication (Chlorzoxazone [Lorzone]) 375 mg PO TID PRN PRN Reason: BACK PAIN Ondansetron HCl (Zofran Injection) 4 mg IVPUSH Q6H PRN PRN Reason: NAUSEA Oxycodone HCl (Roxicodone -) 5 mg PO Q4H PRN PRN Reason: BACK PAIN Last Admin: 10/04/17 05:16 Dose: 5 mg Oxycodone HCl (Oxycontin -) 10 mg PO BID@0700,1700 [facility] Last Admin: 10/05/17 07:06 Dose: 10 mg Polyethylene Glycol (Miralax (For Daily Use) -) 17 gm PO DAILY [facility] Last Admin: 10/05/17 12:24 Dose: Not Given Sertraline HCl (Zoloft -) 250 mg PO DAILY [facility] Last Admin: 10/05/17 10:54 Dose: 250 mg - Objective Vital Signs: Vital Signs Temperature 98.8 F 10/05/17 10:00 Pulse Rate 47 L 10/05/17 10:00 Respiratory Rate 18 10/05/17 10:00 Blood Pressure 134/71 10/05/17 10:00 O2 Sat by Pulse Oximetry (%) 100 10/04/17 21:00 Constitutional: Yes: Well Nourished, Calm Eyes: Yes: WNL HENT: Yes: WNL Neck: Yes: WNL Cardiovascular: Yes: Regular Rate and Rhythm, S1, S2 Respiratory: Yes: CTA Bilaterally Gastrointestinal: Yes: Normal Bowel Sounds, Soft Extremities: Yes: WNL Edema: No Labs: CBC, BMP - ....Imaging Chest X-ray: Report Reviewed, Image Reviewed Problem List - Problems (1) Fibromyalgia Code(s): M79.7 - FIBROMYALGIA (2) Pneumothorax Code(s): J93.9 - PNEUMOTHORAX, UNSPECIFIED Qualifiers: Pneumothorax type: postprocedural Qualified Code(s): J95.811 - Postprocedural pneumothorax; J95.811 - Postprocedural pneumothorax (3) Pain Code(s): R52 - PAIN, UNSPECIFIED (4) Tobacco abuse Code(s): Z72.0 - TOBACCO USE (5) Tobacco abuse counseling Code(s): Z71.6 - TOBACCO ABUSE COUNSELING Assessment/Plan IMP LIKELY IATROGENIC PNEUMOTHORAX S/P PRESSURE POINT INJECTIONS FOR FIBROMYALGIA TOBACCO ABUSE PLAN CHEST TUBE PER THORACIC SURGERY F/U CHEST X-RAY ANALGESICS SUPPLEMENTAL O2 DR ANDERSON Problem List - Problems (1) Fibromyalgia Code(s): M79.7 - FIBROMYALGIA (2) Pneumothorax Code(s): J93.9 - PNEUMOTHORAX, UNSPECIFIED Qualifiers: Pneumothorax type: postprocedural Qualified Code(s): J95.811 - Postprocedural pneumothorax; J95.811 - Postprocedural pneumothorax (3) Pain Code(s): R52 - PAIN, UNSPECIFIED (4) Tobacco abuse Code(s): Z72.0 - TOBACCO USE (5) Tobacco abuse counseling Code(s): Z71.6 - TOBACCO ABUSE COUNSELING
[2017-10-05] MEDS ORDERED: MELATONIN 1 MG TABLET PO ONE (21:26)
[2017-10-05] MEDS ORDERED: ZOLPIDEM TARTRATE 5 MG TABLET PO PRN (21:29)
[2017-10-05] MEDS ORDERED: MELATONIN 1 MG TABLET PO PRN (21:30)
[2017-10-06] MEDS: HYDROmorphone HCL CARPU-JECT 2 MG/1 ML DISP.SYRIN IVPB PRN ×6 (06:32→22:36)
[2017-10-06] MEDS: oxyCODONE HCL 10 MG SUSTAINED ACTING TABLET PO SCH ×2 (09:20→18:10)
[2017-10-06] MEDS: GABAPENTIN 400 MG CAPSULE (FP) PO SCH ×2 (09:20→21:49)
[2017-10-06] MEDS: DOCUSATE SODIUM 100 MG CAPSULE (FP) PO SCH ×2 (09:20→21:49)
[2017-10-06] MEDS: clonazePAM 0.5 MG TABLET PO SCH ×2 (09:21→21:49)
[2017-10-06] MEDS: NICOTINE 7 MG/24 HOURS TOPICAL PATCH TD SCH (09:21)
[2017-10-06] MEDS: SERTRALINE HCL 50 MG TABLET (FP) PO SCH (09:21)
[2017-10-06] MEDS: POLYETHYLENE GLYCOL 3350 119 GM BTL PO SCH (09:25)
--- NOTE | 2017-10-06 12:48 | PN ---
Progress Note, Physician History of Present Illness: pulmonary alert,c/o cp. chest x-ray small apical ptx,- air leak - Current Medication List Current Medications: Active Medications Acetaminophen (Tylenol -) 650 mg PO Q4H PRN PRN Reason: FEVER OR PAIN Clonazepam (Klonopin -) 0.5 mg PO BID [facility] Last Admin: 10/06/17 09:21 Dose: 0.5 mg Docusate Sodium (Colace -) 100 mg PO BID [facility] Last Admin: 10/06/17 09:20 Dose: 100 mg Gabapentin (Neurontin -) 400 mg PO BID [facility] Last Admin: 10/06/17 09:20 Dose: 400 mg Hydromorphone HCl (Dilaudid Injection -) 2 mg IVPB Q3H PRN PRN Reason: PAIN Last Admin: 10/06/17 09:51 Dose: 2 mg Nicotine (Nicoderm Patch -) 7 mg TD DAILY [facility] Last Admin: 10/06/17 09:21 Dose: 7 mg Non-Formulary Medication (Chlorzoxazone [Lorzone]) 375 mg PO TID PRN PRN Reason: BACK PAIN Ondansetron HCl (Zofran Injection) 4 mg IVPUSH Q6H PRN PRN Reason: NAUSEA Oxycodone HCl (Roxicodone -) 5 mg PO Q4H PRN PRN Reason: BACK PAIN Last Admin: 10/04/17 05:16 Dose: 5 mg Oxycodone HCl (Oxycontin -) 10 mg PO BID@0700,1700 [facility] Last Admin: 10/06/17 09:20 Dose: 10 mg Polyethylene Glycol (Miralax (For Daily Use) -) 17 gm PO DAILY [facility] Last Admin: 10/06/17 09:25 Dose: Not Given Sertraline HCl (Zoloft -) 250 mg PO DAILY [facility] Last Admin: 10/06/17 09:21 Dose: 250 mg Zolpidem Tartrate (Ambien -) 5 mg PO ONCE PRN PRN Reason: INSOMNIA Stop: 10/06/17 21:28 Last Admin: 10/05/17 22:44 Dose: 5 mg - Objective Vital Signs: Vital Signs Temperature 98.1 F 10/06/17 06:00 Pulse Rate 52 L 10/06/17 06:00 Respiratory Rate 18 10/06/17 06:00 Blood Pressure 144/93 10/06/17 06:00 O2 Sat by Pulse Oximetry (%) 100 10/05/17 21:00 Constitutional: Yes: Well Nourished, Calm Eyes: Yes: WNL HENT: Yes: WNL Neck: Yes: WNL Cardiovascular: Yes: Regular Rate and Rhythm, S1, S2 Respiratory: Yes: CTA Bilaterally Gastrointestinal: Yes: Normal Bowel Sounds, Soft Extremities: Yes: WNL Edema: No Labs: CBC, BMP 10/04/17 06:30 10/04/17 06:30 INR, PTT INR 0.96 (0.82-1.09) 10/03/17 08:55 - ....Imaging Chest X-ray: Report Reviewed, Image Reviewed Problem List - Problems (1) Fibromyalgia Code(s): M79.7 - FIBROMYALGIA (2) Pneumothorax Code(s): J93.9 - PNEUMOTHORAX, UNSPECIFIED Qualifiers: Pneumothorax type: postprocedural Qualified Code(s): J95.811 - Postprocedural pneumothorax; J95.811 - Postprocedural pneumothorax (3) Pain Code(s): R52 - PAIN, UNSPECIFIED (4) Tobacco abuse Code(s): Z72.0 - TOBACCO USE (5) Tobacco abuse counseling Code(s): Z71.6 - TOBACCO ABUSE COUNSELING Assessment/Plan IMP LIKELY IATROGENIC PNEUMOTHORAX S/P PRESSURE POINT INJECTIONS FOR FIBROMYALGIA TOBACCO ABUSE PLAN CHEST TUBE PER THORACIC SURGERY F/U CHEST X-RAY ANALGESICS SUPPLEMENTAL O2 [address] ANDERSON Problem List - Problems (1) Fibromyalgia Code(s): M79.7 - FIBROMYALGIA (2) Pneumothorax Code(s): J93.9 - PNEUMOTHORAX, UNSPECIFIED Qualifiers: Pneumothorax type: postprocedural Qualified Code(s): J95.811 - Postprocedural pneumothorax; J95.811 - Postprocedural pneumothorax (3) Pain Code(s): R52 - PAIN, UNSPECIFIED (4) Tobacco abuse Code(s): Z72.0 - TOBACCO USE (5) Tobacco abuse counseling Code(s): Z71.6 - TOBACCO ABUSE COUNSELING
--- NOTE | 2017-10-06 15:14 | PN ---
Progress Note (short form) - Note Progress Note: seen and examined. no major event o/n. mild pain around right chest tube site. no f/c/cough/hemoptysis/sob/dsouza. afeb. rrr. cta b/l. ct intact, no air leak. +bs, soft, nt, nd. no c/c/e. a&o x3. CBC, BMP 10/04/17 06:30 10/04/17 06:30 Vital Signs (72 hours) 10/03/17 10/03/17 10/03/17 16:22 17:37 21:00 Temperature 98.2 F Pulse Rate 62 Pulse Rate [ 59 L Apical] Respiratory 18 18 Rate Blood Pressure 124/85 Blood Pressure 117/67 [Left Arm] O2 Sat by Pulse 100 100 100 Oximetry (%) 10/04/17 10/04/17 10/04/17 02:00 06:00 09:00 Temperature 98.4 F 98.4 F Pulse Rate 55 L 50 L Pulse Rate [ Apical] Respiratory 18 18 Rate Blood Pressure 101/55 112/54 Blood Pressure [Left Arm] O2 Sat by Pulse 97 Oximetry (%) 10/04/17 10/04/17 10/04/17 10:00 19:00 21:00 Temperature 98.2 F Pulse Rate 56 L 56 L Pulse Rate [ Apical] Respiratory 18 18 Rate Blood Pressure 130/78 136/85 Blood Pressure [Left Arm] O2 Sat by Pulse 100 Oximetry (%) 10/04/17 10/05/17 10/05/17 22:00 06:00 09:00 Temperature 98.6 F 98.1 F Pulse Rate 50 L 51 L Pulse Rate [ Apical] Respiratory 18 18 Rate Blood Pressure 142/81 135/80 Blood Pressure [Left Arm] O2 Sat by Pulse 100 Oximetry (%) 10/05/17 10/05/17 10/05/17 10:00 14:44 18:59 Temperature 98.8 F 99.0 F 98.1 F Pulse Rate 47 L 53 L 57 L Pulse Rate [ Apical] Respiratory 18 18 18 Rate Blood Pressure 134/71 124/88 132/75 Blood Pressure [Left Arm] O2 Sat by Pulse Oximetry (%) 10/05/17 10/05/17 10/06/17 21:00 22:00 06:00 Temperature 98.1 F 98.1 F Pulse Rate 60 52 L Pulse Rate [ Apical] Respiratory 18 18 Rate Blood Pressure 128/83 144/93 Blood Pressure [Left Arm] O2 Sat by Pulse 100 Oximetry (%) 10/06/17 10/06/17 09:00 10:00 Temperature Pulse Rate 56 L Pulse Rate [ Apical] Respiratory 18 Rate Blood Pressure 128/72 Blood Pressure [Left Arm] O2 Sat by Pulse 97 Oximetry (%) Intake & Output 10/04/17 10/05/17 10/05/17 10/06/17 00:59 00:59 23:59 23:59 Intake Total 50 Output Total Balance 50 Weight a/p 47 yo, f, right ptx, s/p pigtail cath. no air leak off suction. remains clinically stable. 1. cont supp care. wean O2 as roque 2. clamped right chest tube. repeat cxr later. 3. cxr in am 4. will follow Problem List - Problems (1) Pneumothorax Code(s): J93.9 - PNEUMOTHORAX, UNSPECIFIED Qualifiers: Pneumothorax type: postprocedural Qualified Code(s): J95.811 - Postprocedural pneumothorax; J95.811 - Postprocedural pneumothorax
--- NOTE | 2017-10-06 18:32 | PN ---
Progress Note, Physician Chief Complaint: Ms Galvan says she is doing well. Says the chest tube is painful and annoying. Denies sob or n/v. - Current Medication List Current Medications: Active Medications Acetaminophen (Tylenol -) 650 mg PO Q4H PRN PRN Reason: FEVER OR PAIN Clonazepam (Klonopin -) 0.5 mg PO BID [facility] Last Admin: 10/06/17 09:21 Dose: 0.5 mg Docusate Sodium (Colace -) 100 mg PO BID [facility] Last Admin: 10/06/17 09:20 Dose: 100 mg Gabapentin (Neurontin -) 400 mg PO BID [facility] Last Admin: 10/06/17 09:20 Dose: 400 mg Hydromorphone HCl (Dilaudid Injection -) 2 mg IVPB Q3H PRN PRN Reason: PAIN Last Admin: 10/06/17 16:22 Dose: 2 mg Nicotine (Nicoderm Patch -) 7 mg TD DAILY [facility] Last Admin: 10/06/17 09:21 Dose: 7 mg Non-Formulary Medication (Chlorzoxazone [Lorzone]) 375 mg PO TID PRN PRN Reason: BACK PAIN Ondansetron HCl (Zofran Injection) 4 mg IVPUSH Q6H PRN PRN Reason: NAUSEA Oxycodone HCl (Roxicodone -) 5 mg PO Q4H PRN PRN Reason: BACK PAIN Last Admin: 10/04/17 05:16 Dose: 5 mg Oxycodone HCl (Oxycontin -) 10 mg PO BID@0700,1700 [facility] Last Admin: 10/06/17 18:10 Dose: 10 mg Polyethylene Glycol (Miralax (For Daily Use) -) 17 gm PO DAILY [facility] Last Admin: 10/06/17 09:25 Dose: Not Given Sertraline HCl (Zoloft -) 250 mg PO DAILY [facility] Last Admin: 10/06/17 09:21 Dose: 250 mg Zolpidem Tartrate (Ambien -) 5 mg PO ONCE PRN PRN Reason: INSOMNIA Stop: 10/06/17 21:28 Last Admin: 10/05/17 22:44 Dose: 5 mg - Objective Vital Signs: Vital Signs Temperature 37.0 C 10/06/17 15:05 Pulse Rate 52 L 10/06/17 15:05 Respiratory Rate 18 10/06/17 15:05 Blood Pressure 132/69 10/06/17 15:05 O2 Sat by Pulse Oximetry (%) 97 10/06/17 09:00 Constitutional: Yes: Well Nourished, No Distress, Calm Cardiovascular: Yes: Regular Rate and Rhythm. No: Gallop, Murmur, Rub Respiratory: Yes: Regular, CTA Bilaterally, On Nasal O2, Other (chest tube in place). No: Rales, Rhonchi, Wheezes Gastrointestinal: Yes: Normal Bowel Sounds, Soft. No: Distention, Tenderness Extremities: Yes: WNL Edema: No Labs: CBC, BMP 10/04/17 06:30 10/04/17 06:30 INR, PTT INR 0.96 (0.82-1.09) 10/03/17 08:55 Problem List - Problems (1) Pneumothorax Code(s): J93.9 - PNEUMOTHORAX, UNSPECIFIED Qualifiers: Pneumothorax type: postprocedural Qualified Code(s): J95.811 - Postprocedural pneumothorax; J95.811 - Postprocedural pneumothorax (2) Fibromyalgia Code(s): M79.7 - FIBROMYALGIA Assessment/Plan (1) Pneumothorax Assessment/Plan: -case d/w CT surgery -clamping tube now -repeat chest x-ray -if no recurrence of pneumothorax, plan for removal tomorrow -possible d/c tomorrow if chest tube successfully removed Code(s): J93.9 - PNEUMOTHORAX, UNSPECIFIED Qualifiers: Pneumothorax type: postprocedural Qualified Code(s): J95.811 - Postprocedural pneumothorax; J95.811 - Postprocedural pneumothorax (2) Fibromyalgia Assessment/Plan: -continue current regimen Code(s): M79.7 - FIBROMYALGIA
[2017-10-06] MEDS: ZOLPIDEM TARTRATE 5 MG TABLET PO PRN (22:36)
[2017-10-07] MEDS: HYDROmorphone HCL CARPU-JECT 2 MG/1 ML DISP.SYRIN IVPB PRN ×5 (06:27→20:12)
[2017-10-07] MEDS: oxyCODONE HCL 10 MG SUSTAINED ACTING TABLET PO SCH ×2 (08:39→18:43)
[2017-10-07] MEDS ORDERED: BISACODYL 5 MG TABLET.DR (FP) PO PRN (09:32)
[2017-10-07] MEDS: GABAPENTIN 400 MG CAPSULE (FP) PO SCH ×2 (10:01→21:35)
[2017-10-07] MEDS: DOCUSATE SODIUM 100 MG CAPSULE (FP) PO SCH ×2 (10:01→21:35)
[2017-10-07] MEDS: clonazePAM 0.5 MG TABLET PO SCH ×2 (10:02→21:35)
[2017-10-07] MEDS: NICOTINE 7 MG/24 HOURS TOPICAL PATCH TD SCH (10:02)
[2017-10-07] MEDS: SERTRALINE HCL 50 MG TABLET (FP) PO SCH (10:02)
[2017-10-07] MEDS: POLYETHYLENE GLYCOL 3350 119 GM BTL PO SCH (10:32)
--- NOTE | 2017-10-07 15:26 | PN ---
Progress Note (short form) - Note Progress Note: Some discomfort at the pigtail site. Given IS today, minimal use. CXR: Small apical PTX. Intake & Output 10/05/17 10/05/17 10/06/17 10/07/17 00:59 23:59 23:59 23:59 Intake Total 910 550 Balance 910 550 Last Vital Signs Temp Pulse Resp BP Pulse Ox 99.3 F 65 18 129/93 98 10/07/17 14:51 10/07/17 14:51 10/07/17 14:51 10/07/17 14:51 10/06/17 21:00 Active Medications Acetaminophen (Tylenol -) 650 mg PO Q4H PRN PRN Reason: FEVER OR PAIN Bisacodyl (Dulcolax -) 15 mg PO DAILY PRN PRN Reason: CONSTIPATION Clonazepam (Klonopin -) 0.5 mg PO BID [facility] Last Admin: 10/07/17 10:02 Dose: 0.5 mg Docusate Sodium (Colace -) 100 mg PO BID [facility] Last Admin: 10/07/17 10:01 Dose: 100 mg Gabapentin (Neurontin -) 400 mg PO BID [facility] Last Admin: 10/07/17 10:01 Dose: 400 mg Hydromorphone HCl (Dilaudid Injection -) 2 mg IVPB Q3H PRN PRN Reason: PAIN Last Admin: 10/07/17 13:37 Dose: 2 mg Nicotine (Nicoderm Patch -) 7 mg TD DAILY [facility] Last Admin: 10/07/17 10:02 Dose: 7 mg Ondansetron HCl (Zofran Injection) 4 mg IVPUSH Q6H PRN PRN Reason: NAUSEA Oxycodone HCl (Roxicodone -) 5 mg PO Q4H PRN PRN Reason: BACK PAIN Last Admin: 10/04/17 05:16 Dose: 5 mg Oxycodone HCl (Oxycontin -) 10 mg PO BID@0700,1700 [facility] Last Admin: 10/07/17 08:39 Dose: 10 mg Polyethylene Glycol (Miralax (For Daily Use) -) 17 gm PO DAILY [facility] Last Admin: 10/07/17 10:32 Dose: Not Given Sertraline HCl (Zoloft -) 250 mg PO DAILY [facility] Last Admin: 10/07/17 10:02 Dose: 250 mg Zolpidem Tartrate (Ambien -) 5 mg PO HS PRN PRN Reason: INSOMNIA Stop: 10/07/17 22:04 Last Admin: 10/06/17 22:36 Dose: 5 mg Constitutional: Yes: NAD Eyes: Yes: WNL HENT: Yes: WNL Neck: Yes: WNL Cardiovascular: Yes: Regular Rate and Rhythm, S1, S2 Respiratory: Yes: CTA Bilaterally, Right pigtail, clamped Gastrointestinal: Yes: Normal Bowel Sounds, Soft Extremities: Yes: WNL Edema: No Labs: Problem List - Problems (1) Fibromyalgia Code(s): M79.7 - FIBROMYALGIA (2) Pneumothorax Code(s): J93.9 - PNEUMOTHORAX, UNSPECIFIED Qualifiers: Pneumothorax type: postprocedural Qualified Code(s): J95.811 - Postprocedural pneumothorax; J95.811 - Postprocedural pneumothorax (3) Pain Code(s): R52 - PAIN, UNSPECIFIED (4) Tobacco abuse Code(s): Z72.0 - TOBACCO USE (5) Tobacco abuse counseling Code(s): Z71.6 - TOBACCO ABUSE COUNSELING Assessment/Plan IMP IATROGENIC PNEUMOTHORAX S/P PRESSURE POINT INJECTIONS FOR FIBROMYALGIA TOBACCO ABUSE PLAN F/U CHEST X-RAY ANALGESICS SUPPLEMENTAL O2 INCENTIVE SPIROMETER TO D/W CTS & IR DR DAVIS
--- NOTE | 2017-10-07 16:02 | PN ---
Progress Note (short form) - Note Progress Note: reviewed charts, films, labs, and vs. no major events. denies f/c, sob, dsouza. CBC, BMP 10/04/17 06:30 10/04/17 06:30 Vital Signs Intake & Output 10/05/17 10/05/17 10/06/17 10/07/17 00:59 23:59 23:59 23:59 Intake Total 910 550 Balance 910 550 Vital Signs (72 hours) 10/04/17 10/04/17 10/04/17 19:00 21:00 22:00 Temperature 98.2 F 98.6 F Pulse Rate 56 L 50 L Respiratory 18 18 Rate Blood Pressure 136/85 142/81 O2 Sat by Pulse 100 Oximetry (%) 10/05/17 10/05/17 10/05/17 06:00 09:00 10:00 Temperature 98.1 F 98.8 F Pulse Rate 51 L 47 L Respiratory 18 18 Rate Blood Pressure 135/80 134/71 O2 Sat by Pulse 100 Oximetry (%) 10/05/17 10/05/17 10/05/17 14:44 18:59 21:00 Temperature 99.0 F 98.1 F Pulse Rate 53 L 57 L Respiratory 18 18 Rate Blood Pressure 124/88 132/75 O2 Sat by Pulse 100 Oximetry (%) 10/05/17 10/06/17 10/06/17 22:00 06:00 09:00 Temperature 98.1 F 98.1 F Pulse Rate 60 52 L Respiratory 18 18 Rate Blood Pressure 128/83 144/93 O2 Sat by Pulse 97 Oximetry (%) 10/06/17 10/06/17 10/06/17 10:00 15:05 19:00 Temperature 98.6 F 98.9 F Pulse Rate 56 L 52 L 54 L Respiratory 18 18 18 Rate Blood Pressure 128/72 132/69 154/83 O2 Sat by Pulse Oximetry (%) 10/06/17 10/06/17 10/07/17 21:00 22:00 06:00 Temperature 98.7 F 98.1 F Pulse Rate 52 L 51 L Respiratory 18 18 Rate Blood Pressure 131/59 123/80 O2 Sat by Pulse 98 Oximetry (%) 10/07/17 10/07/17 09:00 14:51 Temperature 99.3 F 99.3 F Pulse Rate 54 L 65 Respiratory 18 18 Rate Blood Pressure 149/81 129/93 O2 Sat by Pulse Oximetry (%) a/p 47 yo, f, right ptx, s/p pigtail. stable. 1. march d/c pigtail and repeat cxr 2. pain control 3. d/c planning per primary team 4. d/w dr. ng Problem List - Problems (1) Pneumothorax Code(s): J93.9 - PNEUMOTHORAX, UNSPECIFIED Qualifiers: Pneumothorax type: postprocedural Qualified Code(s): J95.811 - Postprocedural pneumothorax; J95.811 - Postprocedural pneumothorax
--- NOTE | 2017-10-07 16:33 | PN ---
Progress Note, Physician Chief Complaint: Ms Galvan is eager to go home. Pain controlled. No cp, sob, n/v. - Current Medication List Current Medications: Active Medications Acetaminophen (Tylenol -) 650 mg PO Q4H PRN PRN Reason: FEVER OR PAIN Bisacodyl (Dulcolax -) 15 mg PO DAILY PRN PRN Reason: CONSTIPATION Clonazepam (Klonopin -) 0.5 mg PO BID [facility] Last Admin: 10/07/17 10:02 Dose: 0.5 mg Docusate Sodium (Colace -) 100 mg PO BID [facility] Last Admin: 10/07/17 10:01 Dose: 100 mg Gabapentin (Neurontin -) 400 mg PO BID [facility] Last Admin: 10/07/17 10:01 Dose: 400 mg Hydromorphone HCl (Dilaudid Injection -) 2 mg IVPB Q3H PRN PRN Reason: PAIN Last Admin: 10/07/17 13:37 Dose: 2 mg Nicotine (Nicoderm Patch -) 7 mg TD DAILY [facility] Last Admin: 10/07/17 10:02 Dose: 7 mg Ondansetron HCl (Zofran Injection) 4 mg IVPUSH Q6H PRN PRN Reason: NAUSEA Oxycodone HCl (Roxicodone -) 5 mg PO Q4H PRN PRN Reason: BACK PAIN Last Admin: 10/04/17 05:16 Dose: 5 mg Oxycodone HCl (Oxycontin -) 10 mg PO BID@0700,1700 [facility] Last Admin: 10/07/17 08:39 Dose: 10 mg Polyethylene Glycol (Miralax (For Daily Use) -) 17 gm PO DAILY [facility] Last Admin: 10/07/17 10:32 Dose: Not Given Sertraline HCl (Zoloft -) 250 mg PO DAILY [facility] Last Admin: 10/07/17 10:02 Dose: 250 mg Zolpidem Tartrate (Ambien -) 5 mg PO HS PRN PRN Reason: INSOMNIA Stop: 10/07/17 22:04 Last Admin: 10/06/17 22:36 Dose: 5 mg - Objective Vital Signs: Vital Signs Temperature 37.4 C 10/07/17 14:51 Pulse Rate 65 10/07/17 14:51 Respiratory Rate 18 10/07/17 14:51 Blood Pressure 129/93 10/07/17 14:51 O2 Sat by Pulse Oximetry (%) 98 10/07/17 09:00 Constitutional: Yes: Well Nourished, No Distress, Calm Cardiovascular: Yes: Regular Rate and Rhythm. No: Gallop, Murmur, Rub Respiratory: Yes: Regular, CTA Bilaterally. No: Rales, Rhonchi, Wheezes Gastrointestinal: Yes: Normal Bowel Sounds, Soft. No: Distention, Tenderness Extremities: Yes: WNL Edema: No Labs: CBC, BMP 10/04/17 06:30 10/04/17 06:30 INR, PTT INR 0.96 (0.82-1.09) 10/03/17 08:55 Problem List - Problems (1) Pneumothorax Code(s): J93.9 - PNEUMOTHORAX, UNSPECIFIED Qualifiers: Pneumothorax type: postprocedural Qualified Code(s): J95.811 - Postprocedural pneumothorax; J95.811 - Postprocedural pneumothorax (2) Fibromyalgia Code(s): M79.7 - FIBROMYALGIA Assessment/Plan (1) Pneumothorax Assessment/Plan: -case d/w Dr Contreras and Dr Pearl -will move chest tube in am -can d/c in afternoon if does not recur Code(s): J93.9 - PNEUMOTHORAX, UNSPECIFIED Qualifiers: Pneumothorax type: postprocedural Qualified Code(s): J95.811 - Postprocedural pneumothorax; J95.811 - Postprocedural pneumothorax (2) Fibromyalgia Assessment/Plan: -continue current regimen Code(s): M79.7 - FIBROMYALGIA
[2017-10-07] MEDS: ACETAMINOPHEN 325 MG TABLET (FP) PO PRN (20:14)
[2017-10-07] MEDS: ZOLPIDEM TARTRATE 5 MG TABLET PO PRN (21:35)
[2017-10-08] MEDS: oxyCODONE HCL 10 MG SUSTAINED ACTING TABLET PO SCH ×2 (07:56→18:51)
[2017-10-08] MEDS: HYDROmorphone HCL CARPU-JECT 2 MG/1 ML DISP.SYRIN IVPB PRN ×4 (09:19→21:28)
--- NOTE | 2017-10-08 11:45 | PN ---
Progress Note, Physician History of Present Illness: pulmopnary alert,nad,chest tube removed,min chest discomfort - Current Medication List Current Medications: Active Medications Acetaminophen (Tylenol -) 650 mg PO Q4H PRN PRN Reason: FEVER OR PAIN Last Admin: 10/07/17 20:14 Dose: 650 mg Bisacodyl (Dulcolax -) 15 mg PO DAILY PRN PRN Reason: CONSTIPATION Last Admin: 10/07/17 18:14 Dose: 15 mg Clonazepam (Klonopin -) 0.5 mg PO BID [facility] Last Admin: 10/07/17 21:35 Dose: 0.5 mg Docusate Sodium (Colace -) 100 mg PO BID [facility] Last Admin: 10/07/17 21:35 Dose: 100 mg Gabapentin (Neurontin -) 400 mg PO BID [facility] Last Admin: 10/07/17 21:35 Dose: 400 mg Hydromorphone HCl (Dilaudid Injection -) 2 mg IVPB Q3H PRN PRN Reason: PAIN Last Admin: 10/08/17 09:19 Dose: 2 mg Nicotine (Nicoderm Patch -) 7 mg TD DAILY [facility] Last Admin: 10/07/17 10:02 Dose: 7 mg Ondansetron HCl (Zofran Injection) 4 mg IVPUSH Q6H PRN PRN Reason: NAUSEA Oxycodone HCl (Roxicodone -) 5 mg PO Q4H PRN PRN Reason: BACK PAIN Last Admin: 10/04/17 05:16 Dose: 5 mg Oxycodone HCl (Oxycontin -) 10 mg PO BID@0700,1700 [facility] Last Admin: 10/08/17 07:56 Dose: Not Given Polyethylene Glycol (Miralax (For Daily Use) -) 17 gm PO DAILY [facility] Last Admin: 10/07/17 10:32 Dose: Not Given Sertraline HCl (Zoloft -) 250 mg PO DAILY [facility] Last Admin: 10/07/17 10:02 Dose: 250 mg - Objective Vital Signs: Vital Signs Temperature 98.4 F 10/07/17 18:40 Pulse Rate 52 L 10/08/17 11:15 Respiratory Rate 18 10/08/17 11:15 Blood Pressure 136/64 10/08/17 11:15 O2 Sat by Pulse Oximetry (%) 98 10/07/17 21:00 Constitutional: Yes: Well Nourished, Calm Eyes: Yes: WNL HENT: Yes: WNL Neck: Yes: WNL Cardiovascular: Yes: Regular Rate and Rhythm, S1, S2 Respiratory: Yes: CTA Bilaterally Gastrointestinal: Yes: Normal Bowel Sounds, Soft Extremities: Yes: WNL Edema: No Labs: CBC, BMP Problem List - Problems (1) Pain Code(s): R52 - PAIN, UNSPECIFIED (2) Pneumothorax Code(s): J93.9 - PNEUMOTHORAX, UNSPECIFIED Qualifiers: Pneumothorax type: postprocedural Qualified Code(s): J95.811 - Postprocedural pneumothorax (3) Fibromyalgia Code(s): M79.7 - FIBROMYALGIA (4) Tobacco abuse counseling Code(s): Z71.6 - TOBACCO ABUSE COUNSELING (5) Tobacco abuse Code(s): Z72.0 - TOBACCO USE Assessment/Plan IMP LIKELY IATROGENIC PNEUMOTHORAX S/P PRESSURE POINT INJECTIONS FOR FIBROMYALGIA TOBACCO ABUSE PLAN F/U CHEST X-RAY INCENTIVE SPIROMETER DR ANDERSON Problem List - Problems (1) Fibromyalgia Code(s): M79.7 - FIBROMYALGIA (2) Pneumothorax Code(s): J93.9 - PNEUMOTHORAX, UNSPECIFIED Qualifiers: Pneumothorax type: postprocedural Qualified Code(s): J95.811 - Postprocedural pneumothorax; J95.811 - Postprocedural pneumothorax (3) Pain Code(s): R52 - PAIN, UNSPECIFIED (4) Tobacco abuse Code(s): Z72.0 - TOBACCO USE (5) Tobacco abuse counseling Code(s): Z71.6 - TOBACCO ABUSE COUNSELING
[2017-10-08] MEDS: SERTRALINE HCL 50 MG TABLET (FP) PO SCH (11:51)
[2017-10-08] MEDS: GABAPENTIN 400 MG CAPSULE (FP) PO SCH ×2 (11:51→21:24)
[2017-10-08] MEDS: clonazePAM 0.5 MG TABLET PO SCH ×2 (11:52→21:24)
[2017-10-08] MEDS: DOCUSATE SODIUM 100 MG CAPSULE (FP) PO SCH ×2 (11:52→21:24)
[2017-10-08] MEDS: NICOTINE 7 MG/24 HOURS TOPICAL PATCH TD SCH (11:53)
[2017-10-08] MEDS: POLYETHYLENE GLYCOL 3350 119 GM BTL PO SCH (11:59)
--- NOTE | 2017-10-08 18:10 | HOSP ---
Subjective - Review of Symptoms Subjective: Nurse presenting to me with imminent rapid response to be paged overhead for Dr. Crisostomo's pt due to new onset of CP and SOB s/p chest tube discontinuation. In brief pt has been here for treatment of pneumothorax via chest tube placement. Today after 2 days of no chest tube leak seen, it was pulled. Pt now feels like it is the same pain as she experienced when she initially came here. Pt had just received her dilaudid dose prior to examination PE: VS: afebrile, P: 47, BP: 140/74, RR: 17, shallow (limited for pain) SpO2: 96% RA General: Mod distress, severely anxious HEENT: Normal structures of oropharynx, no stridor appreciated Lungs: CTA b/l, slightly diminished air entry with poor-moderate inspiratory effort. No wheezes/rhonchi/rales Cardiac: RRR, no murmur appreciated Abd: Soft, nt/nd, no guarding or masses Plan: Stat CXR ordered: revealed no change from previous done at 14:00 10/08 (today) Stat EKG ordered: revealed sinus bradycardia at 47bpm NC2L placed --Thought process included aid in resorption of existing pneumothorax Discussed with Dr. Hope. Addendum: Repeat vitals showing pulse improving to 60 --Will repeat EKG: revealed sinus bradycardia at 51bpm with no interval change from initial --Chart record shows pt has been 50-60 bpm throughout hospital stay without change in EKG Addendum 2: Pt has resolution of symptoms completely Bradycardia most likely 2/2 dilaudid usage and/or patient's physiologic norm. --Pt is hemodynamically stable with no symptoms resting comfortably in bed currently --Discussed with medical team and nursing staff Physical Examination Vital Signs: Vital Signs Temperature 98.5 F 10/08/17 14:44 Pulse Rate 52 L 10/08/17 14:44 Respiratory Rate 18 10/08/17 14:44 Blood Pressure 122/74 10/08/17 14:44 O2 Sat by Pulse Oximetry (%) 98 10/08/17 09:00 Labs: CBC, BMP 10/04/17 06:30 10/04/17 06:30
[2017-10-08] MEDS ORDERED: ZOLPIDEM TARTRATE 5 MG TABLET PO PRN (21:36)
[2017-10-09] MEDS: NICOTINE 7 MG/24 HOURS TOPICAL PATCH TD SCH (09:25)
[2017-10-09] MEDS: DOCUSATE SODIUM 100 MG CAPSULE (FP) PO SCH (09:25)
[2017-10-09] MEDS: oxyCODONE HCL 10 MG SUSTAINED ACTING TABLET PO SCH (09:25)
[2017-10-09] MEDS: SERTRALINE HCL 50 MG TABLET (FP) PO SCH (09:25)
[2017-10-09] MEDS: GABAPENTIN 400 MG CAPSULE (FP) PO SCH (09:26)
[2017-10-09] MEDS: POLYETHYLENE GLYCOL 3350 119 GM BTL PO SCH (09:26)
[2017-10-09] MEDS: clonazePAM 0.5 MG TABLET PO SCH (09:26)
[2017-10-09] MEDS: HYDROmorphone HCL CARPU-JECT 2 MG/1 ML DISP.SYRIN IVPB PRN (09:34)
--- NOTE | 2017-10-09 10:11 | PN ---
Progress Note (short form) - Note Progress Note: Events overnight noted. C[employer] REP last night -> CXR stable/improved. CXR this AM _> about 10% Right apical PTX. Intake & Output 10/06/17 10/07/17 10/08/17 10/09/17 23:59 23:59 23:59 23:59 Intake Total 910 2050 400 Balance 910 2050 400 Last Vital Signs Temp Pulse Resp BP Pulse Ox 97.9 F 53 L 18 115/71 99 10/09/17 02:00 10/09/17 02:00 10/09/17 02:00 10/09/17 02:00 10/08/17 21:00 Active Medications Acetaminophen (Tylenol -) 650 mg PO Q4H PRN PRN Reason: FEVER OR PAIN Last Admin: 10/07/17 20:14 Dose: 650 mg Bisacodyl (Dulcolax -) 15 mg PO DAILY PRN PRN Reason: CONSTIPATION Last Admin: 10/07/17 18:14 Dose: 15 mg Clonazepam (Klonopin -) 0.5 mg PO BID [facility] Last Admin: 10/09/17 09:26 Dose: 0.5 mg Docusate Sodium (Colace -) 100 mg PO BID [facility] Last Admin: 10/09/17 09:25 Dose: 100 mg Gabapentin (Neurontin -) 400 mg PO BID [facility] Last Admin: 10/09/17 09:26 Dose: 400 mg Hydromorphone HCl (Dilaudid Injection -) 2 mg IVPB Q3H PRN PRN Reason: PAIN Last Admin: 10/09/17 09:34 Dose: 2 mg Nicotine (Nicoderm Patch -) 7 mg TD DAILY [facility] Last Admin: 10/09/17 09:25 Dose: 7 mg Ondansetron HCl (Zofran Injection) 4 mg IVPUSH Q6H PRN PRN Reason: NAUSEA Oxycodone HCl (Roxicodone -) 5 mg PO Q4H PRN PRN Reason: BACK PAIN Last Admin: 10/04/17 05:16 Dose: 5 mg Oxycodone HCl (Oxycontin -) 10 mg PO BID@0700,1700 [facility] Last Admin: 10/09/17 09:25 Dose: 10 mg Polyethylene Glycol (Miralax (For Daily Use) -) 17 gm PO DAILY [facility] Last Admin: 10/09/17 09:26 Dose: Not Given Sertraline HCl (Zoloft -) 250 mg PO DAILY [facility] Last Admin: 10/09/17 09:25 Dose: 250 mg Zolpidem Tartrate (Ambien -) 5 mg PO HS PRN PRN Reason: INSOMNIA Last Admin: 10/08/17 23:14 Dose: 5 mg Constitutional: Yes: NAD Eyes: Yes: WNL HENT: Yes: WNL Neck: Yes: WNL Cardiovascular: Yes: Regular Rate and Rhythm, S1, S2 Respiratory: Yes: CTA Bilaterally, Right pigtail, clamped Gastrointestinal: Yes: Normal Bowel Sounds, Soft Extremities: Yes: WNL Edema: No Labs: Problem List - Problems (1) Fibromyalgia Code(s): M79.7 - FIBROMYALGIA (2) Pneumothorax Code(s): J93.9 - PNEUMOTHORAX, UNSPECIFIED Qualifiers: Pneumothorax type: postprocedural Qualified Code(s): J95.811 - Postprocedural pneumothorax; J95.811 - Postprocedural pneumothorax (3) Pain Code(s): R52 - PAIN, UNSPECIFIED (4) Tobacco abuse Code(s): Z72.0 - TOBACCO USE (5) Tobacco abuse counseling Code(s): Z71.6 - TOBACCO ABUSE COUNSELING Assessment/Plan IMP IATROGENIC PNEUMOTHORAX S/P PRESSURE POINT INJECTIONS FOR FIBROMYALGIA TOBACCO ABUSE PLAN F/U CHEST X-RAY AT 2 PM -> IF STABLE CAN D/C HOME ANALGESICS SUPPLEMENTAL O2 INCENTIVE SPIROMETER NO SMOKING DR DAVIS
[2017-10-09 11:36] VITALS: BP 112/70; PULSE 56; TEMP 98.1
[2017-10-09] MEDS: oxyCODONE HCL 5 MG TABLET PO PRN (14:47)
[2017-10-09] MEDS: ACETAMINOPHEN 325 MG TABLET (FP) PO PRN (14:48)
--- NOTE | 2017-10-09 15:14 | DS ---
Physical Exam: SUBJECTIVE: Patient seen and examined. states breathing is improved. no repeat episodes of SOB or chest pain. no cough. denies Cp< SOB, fever, chills, N/V/C/d or cough OBJECTIVE: Vital Signs Period Temp Pulse Resp BP Sys/Mays Pulse Ox Last 24 Hr 97.8 F-98.1 F 52-64 18-22 112-142/70-90 98-99 PHYSICAL EXAM GENERAL: The patient is awake, alert, and fully oriented, in no acute distress. HEAD: Normal with no signs of trauma. EYES: PERRL, extraocular movements intact, sclera anicteric, conjunctiva clear. ENT: Ears normal, nares patent, oropharynx clear without exudates, moist mucous membranes. NECK: Trachea midline, full range of motion, supple. LUNGS: Breath sounds equal, clear to auscultation bilaterally, no wheezes, no crackles, no accessory muscle use. HEART: Regular rate and rhythm, S1, S2 without murmur, rub or gallop. ABDOMEN: Soft, nontender, nondistended, normoactive bowel sounds, no guarding, no rebound, no hepatosplenomegaly, no masses. EXTREMITIES: 2+ pulses, warm, well-perfused, no edema. NEUROLOGICAL: Cranial nerves II through XII grossly intact. Normal speech, gait not observed. PSYCH: Normal mood, normal affect. SKIN: Warm, dry, normal turgor, no rashes or lesions noted. LABS HOSPITAL COURSE: Date of Admission:10/03/17 Date of Discharge: 10/09/17 Admitting Diagnosis: R sided pneumothorax Procedures Chest tube placement 10/03 and removed 10/08 Pre hospital course 47 year old female who comes in with chest and back pain. She has a history of fibromyalgia and received pressure point injections yesterday. She was feeling well and went home, but at night began to develop pain in her back. Throughout the night the pain worsened and began to radiate to her chest and neck. Then she became short of breath secondary to feeling like she cannot take a full breath. Because of that she came in. She denies fevers, chills, lightheadedness , dizziness, passing out, nausea, vomiting, abdominal pain, diarrhea, constipation, difficulty or pain on urination, or swelling. Subsequent hospital course Admitted to medicine. Chest tube placed by CT surgery. pt clinically improved. Chest tube removed on 10/08. pt was scheduled for discharge but developed chest pain and shortness of breath. on EKG was noted to be bradycardic.pt was hemodynamicaly stable. On day of discharge she continued to hve R apical PTX but unchanged. HR improved to 62-65 at rest which increased with physical activity. d/c home Minutes to complete discharge: 45 Discharge Summary Reason For Visit: PNEUMOTHORAX Current Active Problems Fibromyalgia (Acute) Pneumothorax (Acute) Tobacco abuse (Acute) Tobacco abuse counseling (Acute) Condition: Good - Instructions Diet, Activity, Other Instructions: You were admitted to the hospital due to a punctured lung. This has improved. It is very important that you stop smoking as this will make you more prone to having this occur again in the future. Please follow up with Pulmonary, Dr lee, in 1 week. You will need to have a chest XRay done at this time. Continue your home medications Follow up with your primary care doctor in 1 week. Referrals: Shayan Contreras MD [Staff Physician] - Lan Lee MD [Staff Physician] - Dick Hollins MD [Primary Care Provider] - Disposition: HOME - Home Medications Comprehensive Discharge Medication List: Ambulatory Orders Sertraline HCl [Zoloft -] 250 mg PO DAILY 02/11/14 Clonazepam [KlonoPIN] 0.5 mg PO DAILY 01/18/15 Chlorzoxazone [Lorzone] 500 mg PO BID PRN 12/13/16 Clonazepam [Klonopin] 1 mg PO HS 12/13/16 Gabapentin [Neurontin -] 400 mg PO BID 12/13/16 Oxymorphone HCl [Opana ER] 30 mg PO BID 12/13/16 This patient is new to me today: Yes Date on this admission: 10/09/17 Emergency Visit: Yes ED Registration Date: 10/03/17 Care time: The patient presented to the Emergency Department on the above date and was hospitalized for further evaluation of their emergent condition. Critical Care patient: No - Discharge Referral Referred to [facility] No
--- NOTE | 2017-10-09 16:33 | EKG ---
Test Reason : Blood Pressure : / mmHG Vent. Rate : 051 BPM Atrial Rate : 051 BPM P-R Int : 150 ms QRS Dur : 086 ms QT Int : 466 ms P-R-T Axes : 033 060 079 degrees QTc Int : 429 ms SINUS BRADYCARDIA OTHERWISE NORMAL ECG WHEN COMPARED WITH ECG OF 08-OCT-2017 17:54, NO SIGNIFICANT CHANGE WAS FOUND Confirmed by MARÍA ELENA FERRIS MD ([id number]) on 10/09/2017 4:33:16 PM Referred By: Confirmed By:MARÍA ELENA FERRIS MD
--- NOTE | 2017-10-09 16:34 | EKG ---
Test Reason : Blood Pressure : / mmHG Vent. Rate : 041 BPM Atrial Rate : 041 BPM P-R Int : 164 ms QRS Dur : 082 ms QT Int : 492 ms P-R-T Axes : 029 062 079 degrees QTc Int : 405 ms MARKED SINUS BRADYCARDIA ABNORMAL ECG WHEN COMPARED WITH ECG OF 03-OCT-2017 08:30, NO SIGNIFICANT CHANGE WAS FOUND Confirmed by MARÍA ELENA FERRIS MD ([id number]) on 10/09/2017 4:33:51 PM Referred By: Confirmed By:MARÍA ELENA FERRIS MD
== END 2017-10-09 15:32 | disposition home or self-care (01) | DRG 201 ==
LOC: JER 08:18 → JERBED 12:05 → J5S 16:18
PROVIDERS: ADMIT Internal Medicine; ATTEND Internal Medicine
PROC: 0W9930Z Drainage of Right Pleural Cavity with Drainage Device, Percutaneous Approach (ICD-10-PCS; principal; 2017-10-03)
DX: J95.811 Postprocedural pneumothorax (principal); Y84.8 Other medical procedures as the cause of abnormal reaction of the patient, or of later complication, without mention of misadventure at the time of the procedure; M79.7 Fibromyalgia; R00.1 Bradycardia, unspecified; T40.2X5A Adverse effect of other opioids, initial encounter; K58.9 Irritable bowel syndrome, unspecified; F41.9 Anxiety disorder, unspecified; F17.210 Nicotine dependence, cigarettes, uncomplicated
CPT/HCPCS: 32557; 36415; 71010-TC; 71020-TC; 80048; 80053; 81003; 82550; 83735; 84100; 84484; 84703; 85025; 85379; 85610; 85730; 93005; 93010; 94010; 99285-25; C1729; C1769

== ENCOUNTER 2017-10-19 03:18 | Emergency (ER) | payer BC ==
[2017-10-19 03:37] VITALS: BP 134/86; PULSE 63; TEMP 97.6; BMI 21.5
[2017-10-19] MEDS ORDERED: SODIUM CHLORIDE 1,000 ML IV STA (03:55)
--- NOTE | 2017-10-19 03:55 | PDOC ---
History of Present Illness - General Chief Complaint: Allergic Reaction Stated Complaint: DIZZY, SHAKING, Time Seen by Provider: 10/19/17 03:41 History Source: Patient Exam Limitations: No Limitations - History of Present Illness Initial Comments: 10/19/17 03:50 47yo Female patient w/ PmHx: Pneumothorax, depression presents to ED c/o intolerance to Nicoderm transdermal patch. Patient state she had been hospitalized x 7 day recently due to pneumothorax s/p trigger point injections. She states she is a heavy smoker and was put on Nicotine patch while admitted. Patient had been home for a few day without any nicotine products and brought OTC 21mg Nicotine patch when she developed shaking, anxiety, inability to sleep. She denies CP, Diff breathing, cough, back pain, n/v/d, fever, or any other complaints at this time. Patient took Klonopin 1mg with no relief from symptoms. Timing/Duration: reports: just prior to arrival Severity: reports: moderate Episode Description: See HPI Possible Cause: Yes: no prior episodes Modifying Factors: worse with: activity, albuterol inhaler, albuterol nebulizer , antibiotics, coughing, lying down, oxygen, rest, other Associated Symptoms: reports: dizziness. denies: denies symptoms, chest pain/ soreness, cough, earache, facial pain, fever/chills, headache, lightheadedness, muscle aches, nasal congestion, nasal drainage, shortness of breath, sinus infection, sore throat, wheezing, other Aspirin Received prior to arrival: No: no aspirin today, unknown, 81 mg x 1, 81 mg x 2, 81 mg x 3, 81 mg x 4, 325 mg x 1, provided at home, provided by EMS, provided by ED Past History - Travel Traveled outside of the country in the last 30 days: No Close contact w/someone who was outside of country & ill: No - Past Medical History Allergies/Adverse Reactions: Allergies Allergy/AdvReac Type Severity Reaction Status Date / Time codeine [Codeine] Allergy Severe Rash Verified 10/19/17 03:36 Home Medications: Ambulatory Orders Sertraline HCl [Zoloft -] 250 mg PO DAILY 02/11/14 Clonazepam [KlonoPIN] 0.5 mg PO DAILY 01/18/15 Chlorzoxazone [Lorzone] 500 mg PO BID PRN 12/13/16 Clonazepam [Klonopin] 1 mg PO HS 12/13/16 Gabapentin [Neurontin -] 400 mg PO BID 12/13/16 Oxymorphone HCl [Opana ER] 30 mg PO BID 12/13/16 Ondansetron [Zofran Odt -] 4 mg SL Q6H PRN #30 od.tablet 10/19/17 Anemia: No Asthma: No Cancer: No Cardiac Disorders: No CVA: No COPD: No CHF: No Dementia: No Diabetes: No GI Disorders: Yes (IBS) Disorders: No HTN: No Hypercholesterolemia: No Liver Disease: No Psychiatric Problems: Yes (ANXIETY) Seizures: No Thyroid Disease: No - Surgical History Abdominal Surgery: No (CYST REMOVED FROM OVARY) Appendectomy: No Cardiac Surgery: No Cholecystectomy: No Lung Surgery: No Neurologic Surgery: No Orthopedic Surgery: No - Suicide/Smoking/Psychosocial Hx Smoking Status: No Smoking History: Former smoker Have you smoked in the past 12 months: Yes Number of Cigarettes Smoked Daily: 10 If you are a former smoker, when did you quit?: 2 weeks ago Information on smoking cessation initiated: No 'Breaking Loose' booklet given: 10/03/17 Hx Alcohol Use: No Drug/Substance Use Hx: No Substance Use Type: None Hx Substance Use Treatment: No Respiratory Specific PMHX - Complaint Specific PMHX Angina: No Bronchitis: No Pneumonia: No Pulmonary Embolus: No TB (Tuberculosis): No Review of Systems - Review of Systems Able to Perform ROS?: Yes Is the patient limited Belarusian proficient: No Constitutional: No: Chills, Fever Respiratory: No: Cough Cardiac (ROS): No: Chest Pain, Palpitations, Syncope, Chest Tightness Psychiatric: Yes: Anxiety, Stressors, Sleep Pattern Change All Other Systems: Reviewed and Negative *Physical Exam - Vital Signs Last Vital Signs Temp Pulse Resp BP Pulse Ox 97.6 F 63 20 134/86 100 10/19/17 03:36 10/19/17 03:36 10/19/17 03:36 10/19/17 03:36 10/19/17 03:36 - Physical Exam General Appearance: Yes: Nourished, Appropriately Dressed, Other (Anxious). No : Apparent Distress, Mild Distress, Moderate Distress, Severe Distress Neck: positive: Trachea midline, Supple. negative: Rigid, Stridor, Lymphadenopathy (R), Lymphadenopathy (L) Respiratory/Chest: positive: Lungs Clear, Normal Breath Sounds. negative: Chest Tender, Respiratory Distress, Accessory Muscle Use, Labored Respiration, Rapid RR, Rhonchi, Stridor, Wheezing, Hyperresonant Cardiovascular: positive: Regular Rhythm, Regular Rate Musculoskeletal: positive: Normal Inspection. negative: CVA Tenderness Extremity: positive: Normal Capillary Refill, Normal Inspection, Normal Range of Motion. negative: Pedal Edema, Swelling, Calf Tenderness, Erythema, Inflammation Integumentary: positive: Normal Color, Dry, Warm. negative: Diaphoresis, Rash, Swelling Neurologic: positive: export sales assistant II-XII NML intact, Fully Oriented, Alert, Normal Mood/ Affect, Normal Response, Motor Strength 5/5 Medical Decision Making - Medical Decision Making 10/19/17 04:03 Patient refusing labs, urine, ekg. She is requesting IVF only. 10/19/17 04:57 1L IVF infused. Patient feeling much better. Would like to be d/c'd home. *DC/Admit/Observation/Transfer Diagnosis at time of Disposition: Medication intolerance - Discharge Dispostion Disposition: HOME Condition at time of disposition: Improved Admit: No - Prescriptions Prescriptions: Ondansetron [Zofran Odt -] 4 mg SL Q6H PRN #30 od.tablet PRN Reason: Nausea/Vomiting - Referrals Referrals: Dick Hollins MD [Primary Care Provider] - - Patient Instructions Printed Discharge Instructions: DI for General Allergic Reactions Additional Instructions: If you change your mind about lab work and other testing return to emergency department for further evaluation. Take medications as prescribed. Follow up with your doctor regarding guidance on what dosage patch to use. [place] [facility] [place] If symptoms worsen or any concerns, return as soon as possible. Print Language: URDU - Post Discharge Activity
[2017-10-19] MEDS ORDERED: ONDANSETRON *ODT* 4 MG TABLET ONE (05:06)
[2017-10-19] MEDS ORDERED: ONDANSETRON *ODT* 4 MG TABLET SL ONE (05:10)
== END 2017-10-19 05:05 | disposition home or self-care (01) ==
LOC: JER 03:18
DX: T44.1X5A Adverse effect of other parasympathomimetics [cholinergics], initial encounter (principal); F41.9 Anxiety disorder, unspecified; K58.9 Irritable bowel syndrome, unspecified
CPT/HCPCS: 99281-25

== ENCOUNTER 2018-11-03 15:09 | Observation (INO) | payer BC ==
[2018-11-03 15:16] VITALS: BMI 22.8
[2018-11-03] MEDS ORDERED: SODIUM CHLORIDE 1,000 ML IV STA (15:25)
[2018-11-03] MEDS ORDERED: ONDANSETRON 4 MG/2 ML VIAL IVPB ONE (15:25)
[2018-11-03] MEDS ORDERED: HYDROmorphone HCL CARPU-JECT 2 MG/1 ML DISP.SYRIN IVPUSH ONE ×2 (15:26→15:55)
[2018-11-03] MEDS ORDERED: ONDANSETRON 4 MG/2 ML VIAL ONE (15:27)
[2018-11-03] MEDS ORDERED: HYDROmorphone HCl 2 MG/ML VIAL ONE ×2 (15:27→15:57)
--- NOTE | 2018-11-03 15:30 | PDOC ---
History of Present Illness <Td Chandler - Last Filed: 11/03/18 17:39> - General History Source: Patient Exam Limitations: No Limitations - History of Present Illness Initial Comments: 11/03/18 15:49 The patient is a 48-year-old female, with a past medical history of pneumothorax and depression, who presents to the ED with sudden onset of left- sided abdominal pain and left flank pain. Patient describes the pain as constant and associated with nausea, but no vomiting. She denies experiencing these symptoms before. She denies any history of kidney stones. Patient is no longer menstruating. She reports having a recent colonoscopy in March that was normal. The patient denies any fever, chills, vomiting, or diarrhea. Denies any dysuria, frequency, urgency, hesitancy, or hematuria. Denies any shortness of breath or chest pain. Allergies: Codeine Surgical History: Ovarian cyst removal. Social History: None reported. <Candice Lozano - Last Filed: 11/03/18 21:15> - General Chief Complaint: Pain Stated Complaint: ABD PAIN Time Seen by Provider: 11/03/18 15:19 Past History - Past Medical History Anemia: No Asthma: No Cancer: No Cardiac Disorders: No CVA: No COPD: No CHF: No Dementia: No Diabetes: No GI Disorders: Yes (IBS) Disorders: No HTN: No Hypercholesterolemia: No Liver Disease: No Psychiatric Problems: Yes (ANXIETY) Seizures: No Thyroid Disease: No - Surgical History Abdominal Surgery: No (CYST REMOVED FROM OVARY) Appendectomy: No Cardiac Surgery: No Cholecystectomy: No Lung Surgery: No Neurologic Surgery: No Orthopedic Surgery: No - Suicide/Smoking/Psychosocial Hx Smoking Status: No Smoking History: Current every day smoker Have you smoked in the past 12 months: Yes Number of Cigarettes Smoked Daily: 10 If you are a former smoker, when did you quit?: 2 weeks ago Information on smoking cessation initiated: No 'Breaking Loose' booklet given: 10/03/17 Hx Alcohol Use: No Drug/Substance Use Hx: No Substance Use Type: None Hx Substance Use Treatment: No <Td Chandler - Last Filed: 11/03/18 17:39> <Candice Lozano - Last Filed: 11/03/18 21:15> - Past Medical History Allergies/Adverse Reactions: Allergies Allergy/AdvReac Type Severity Reaction Status Date / Time codeine [Codeine] Allergy Severe Rash Verified 11/03/18 15:16 Home Medications: Ambulatory Orders Sertraline HCl [Zoloft -] 250 mg PO DAILY 02/11/14 clonazePAM [KlonoPIN] 0.5 mg PO DAILY 01/18/15 Chlorzoxazone [Lorzone] 500 mg PO BID PRN 12/13/16 Clonazepam [Klonopin] 1 mg PO HS 12/13/16 Gabapentin [Neurontin -] 400 mg PO BID 12/13/16 Oxymorphone HCl [Opana ER] 30 mg PO BID 12/13/16 Review of Systems - Review of Systems Constitutional: No: Chills, Fever Respiratory: No: Cough, Shortness of Breath Cardiac (ROS): No: Chest Pain ABD/GI: Yes: Nausea. No: Diarrhea, Vomiting : Yes: Flank Pain. No: Burning, Frequency, Hematuria All Other Systems: Reviewed and Negative <Td Chandler - Last Filed: 11/03/18 17:39> - Review of Systems Able to Perform ROS?: Yes <Candice Lozano - Last Filed: 11/03/18 21:15> *Physical Exam - Vital Signs Last Vital Signs Temp Pulse Resp BP Pulse Ox 98.4 F 62 22 H 161/89 100 11/03/18 15:13 11/03/18 15:13 11/03/18 15:13 11/03/18 15:13 11/03/18 15:13 <Td Chandler - Last Filed: 11/03/18 17:39> - Vital Signs Last Vital Signs Temp Pulse Resp BP Pulse Ox 98.4 F 62 22 H 161/89 100 11/03/18 15:13 11/03/18 15:13 11/03/18 15:13 11/03/18 15:13 11/03/18 15:13 - Physical Exam Comments: 11/03/18 15:49 GENERAL: The patient is awake, alert, and fully oriented. HEAD: Normal with no signs of trauma. EYES: Pupils equal, round and reactive to light, extraocular movements intact, sclera anicteric, conjunctiva clear with no pallor. ENT: Ears normal, nares patent, oropharynx clear without exudates. Moist mucous membranes. NECK: Normal range of motion, supple without lymphadenopathy, JVD, or masses. LUNGS: Breath sounds equal, clear to auscultation bilaterally. No wheeze/ crackles. HEART: Regular rate and rhythm, normal S1 and S2 without murmur or rub. ABDOMEN: (+)Tender with guarding lateral left mid abdomen. Soft/nondistended. BS wnl. No guarding or rebound. No palpable masses. No hepatosplenomegaly. EXTREMITIES: Normal range of motion, no edema. No clubbing or cyanosis. No cords, erythema, or tenderness. NEUROLOGICAL: Cranial nerves II through XII grossly intact. Normal speech. PSYCH: Normal mood, normal affect. SKIN: Warm, Dry, normal turgor, no rashes or lesions noted. <Candice Lozano - Last Filed: 11/03/18 21:15> Moderate Sedation - Procedure Monitoring Vital Signs: Procedure Monitoring Vital Signs Temperature 98.4 F 11/03/18 15:13 Pulse Rate 62 11/03/18 15:13 Respiratory Rate 22 H 11/03/18 15:13 Blood Pressure 161/89 11/03/18 15:13 O2 Sat by Pulse Oximetry (%) 100 11/03/18 15:13 <Td Chandler - Last Filed: 11/03/18 17:39> - Procedure Monitoring Vital Signs: Procedure Monitoring Vital Signs Temperature 98.4 F 11/03/18 15:13 Pulse Rate 62 11/03/18 15:13 Respiratory Rate 22 H 11/03/18 15:13 Blood Pressure 161/89 11/03/18 15:13 O2 Sat by Pulse Oximetry (%) 100 11/03/18 15:13 <Candice Lozano - Last Filed: 11/03/18 21:15> ED Treatment Course - LABORATORY CBC & Chemistry Diagram: 11/03/18 15:30 11/03/18 15:30 <Td Chandler - Last Filed: 11/03/18 17:39> - LABORATORY CBC & Chemistry Diagram: 11/03/18 15:30 11/03/18 15:30 - ADDITIONAL ORDERS Additional order review: 11/03/18 15:30 RBC 4.65 MCV 88.9 MCHC 35.3 RDW 13.6 MPV 9.2 D Neutrophils % 57.2 D Lymphocytes % 35.2 D Monocytes % 5.1 Eosinophils % 1.2 D Basophils % 1.3 D - Medications Given in the ED: ED Medications Discontinued Medications Generic Name Dose Route Start Last Admin Trade Name Balwinder PRN Reason Stop Dose Admin Hydromorphone HCl 0.5 mg 11/03/18 15:26 11/03/18 15:37 Dilaudid Injection - IVPUSH 11/03/18 15:27 0.5 mg ONCE ONE Administration Ondansetron HCl 8 mg 11/03/18 15:25 11/03/18 15:37 Zofran Injection IVPB 11/03/18 15:26 8 mg ONCE ONE Administration <Candice Lozano - Last Filed: 11/03/18 21:15> Medical Decision Making - Medical Decision Making 11/03/18 15:28 Healthy 48-year-old female with history of pneumothorax presents with acute onset of left flank/left abdominal pain 2 hours ago, associated with nausea but no vomiting or diarrhea. The pain is constant, severe, and never had this before. No respiratory symptoms, does not get her menses, has no history of kidney stones or gallstones or ovarian cysts. Normal colonoscopy in March. Afebrile In moderate to severe discomfort secondary to left abdominal/flank pain, writhing in bed No jaundice or pallor Heart is regular, lungs are clear Abdomen is soft/nondistended. Tender in the left mid abdomen laterally, slight left CVA tenderness, no lower abdominal tenderness or guarding. No rash. 48-year-old female with acute onset of mid abdominal pain 2 hours ago associated with nausea. Given the acuity of onset and location of tenderness, high suspicion for renal colic, less likely SBO or PERSONAL CARE ATTENDANT pathology. No cardiopulmonary findings. Labs, urinalysis Pain control, nausea control CT imaging Reassess 11/03/18 17:14 pain resolved after toradol and dilaudid. abd remains tender L lateral mid abd and LUQ. labs normal, no leukocytosis, lipase normal. Notably, UA normal without elevated RBC Serum qual preg indeterminate, quant added CTAP with iv contrast given lower suspicion for renal colic in absence of hematuria reassess. pt signed out to oncoming physician to f/u results, reassess patient, and dispo accordingly 11/03/18 17:39 hcg 5.5. shared decision making with patient, not sexually active and adamant not . wants to proceed with ctap despite potential risks (if , extremely early). proceed with ct and prior plan. <Td Chandler - Last Filed: 11/03/18 17:39> *DC/Admit/Observation/Transfer <Td Chandler - Last Filed: 11/03/18 17:39> - Attestations Scribe Attestion: 11/03/18 15:59 Documentation prepared by Candice Lozano, acting as medical assembly for Td Chandler MD. <Candice Lozano - Last Filed: 11/03/18 21:15> Diagnosis at time of Disposition: Left lateral abdominal pain - Discharge Dispostion Condition at time of disposition: Fair - Referrals Referrals: Dick Hollins MD [Primary Care Provider] -
[2018-11-03 15:41] LABS: BASO % 1.3 % (0-2.0); EOS % 1.2 % (0-4.5); HEMATOCRIT 41.4 % (32.4-45.2); HEMOGLOBIN 14.6 GM/dL (10.7-15.3); LYMPH % 35.2 % (8-40); MCH 31.4 pg (25.7-33.7); MCHC 35.3 g/dl (32.0-36.0); MEAN CELL VOLUME 88.9 fl (80-96); MEAN PLT VOLUME 9.2 fl (7.5-11.1); MONO % 5.1 % (3.8-10.2); NEUT % 57.2 % (42.8-82.8); PLATELET COUNT 256 K/MM3 (134-434); RBC 4.65 M/mm3 (3.60-5.2); RDW 13.6 % (11.6-15.6); WHITE BLOOD COUNT 8.2 K/mm3 (4.0-10.0)
[2018-11-03] MEDS ORDERED: KETOROLAC TROMETHAMINE 30 MG/1 ML VIAL IVPUSH ONE (15:47)
[2018-11-03] MEDS ORDERED: KETOROLAC TROMETHAMINE 30 MG/1 ML VIAL ONE (15:47)
[2018-11-03 15:59] LABS: ALBUMIN 4.1 g/dl (3.4-5.0); ALK PHOS 57 U/L (45-117); ANION GAP 6 MMOL/L (8-16); BILIRUBIN,TOTAL 0.3 mg/dL (0.2-1); BLOOD UREA NITROGEN 10 mg/dL (7-18); CALCIUM 9.7 mg/dL (8.5-10.1); CHLORIDE 102 mmol/L (98-107); CO2 30 mmol/L (21-32); CREATININE 0.8 mg/dL (0.55-1.3); GLUCOSE,RANDOM 92 mg/dL (74-106); LIPASE 129 U/L (73-393); POTASSIUM 3.8 mmol/L (3.5-5.1); SGOT/AST 27 U/L (15-37); SGPT/ALT 31 U/L (13-61); SODIUM 138 mmol/L (136-145); TOT PROT 7.6 g/dl (6.4-8.2)
[2018-11-03 16:21] LABS: URINE APPEARANCE CLEAR; URINE BILIRUBIN NEGATIVE (<2.0 mg/dL); URINE COLOR STRAW; URINE GLUCOSE (UA) NEGATIVE (NEGATIVE); URINE KETONE NEGATIVE (NEGATIVE); URINE LEUK ESTERASE TRACE (NEGATIVE); URINE NITRITE NEGATIVE (NEGATIVE); URINE PROTEIN NEGATIVE (NEGATIVE); URINE UROBILINOGEN NEGATIVE mg/dL (0.2-1.0)
[2018-11-03 16:31] LABS: EPI CELLS RARE /HPF (FEW); URINE MUCUS RARE
--- NOTE | 2018-11-03 21:17 | PDOC ---
*Physical Exam - Vital Signs Last Vital Signs Temp Pulse Resp BP Pulse Ox 98.0 F 49 L 18 110/61 98 11/03/18 21:12 11/03/18 21:12 11/03/18 21:12 11/03/18 21:12 11/03/18 21:12 <BlakeCandice - Last Filed: 11/03/18 23:06> - Vital Signs Last Vital Signs Temp Pulse Resp BP Pulse Ox 98.0 F 49 L 18 110/61 98 11/03/18 21:12 11/03/18 21:12 11/03/18 21:12 11/03/18 21:12 11/03/18 21:12 <Anne Warren - Last Filed: 11/04/18 00:00> ED Treatment Course - LABORATORY CBC & Chemistry Diagram: 11/03/18 15:30 11/03/18 15:30 - ADDITIONAL ORDERS Additional order review: Laboratory Results 11/03/18 11/03/18 11/03/18 15:30 15:27 15:26 Sodium 138 Potassium 3.8 Chloride 102 Carbon Dioxide 30 Anion Gap 6 L BUN 10 Creatinine 0.8 Creat Clearance w eGFR > 60 Random Glucose 92 Calcium 9.7 Total Bilirubin 0.3 AST 27 ALT 31 Alkaline Phosphatase 57 Total Protein 7.6 Albumin 4.1 Lipase 129 Beta HCG, Quant 5.5 Serum , Qual Indeterminate Urine Color Straw Urine Appearance Clear Urine pH 7.0 Ur Specific [place] 1.004 L Urine Protein Negative Urine Glucose (UA) Negative Urine Ketones Negative Urine Blood Negative Urine Nitrite Negative Urine Bilirubin Negative Urine Urobilinogen Negative Ur Leukocyte Esterase Trace Urine WBC (Auto) 2 Urine RBC (Auto) <1 Ur Epithelial Cells Rare Urine Mucus Rare 11/03/18 15:30 RBC 4.65 MCV 88.9 MCHC 35.3 RDW 13.6 MPV 9.2 D Neutrophils % 57.2 D Lymphocytes % 35.2 D Monocytes % 5.1 Eosinophils % 1.2 D Basophils % 1.3 D - RADIOLOGY Radiology Studies Ordered: 11/03/18 21:27 Abdomen/Pelvis CT was reviewed by Dr. Warren and over-read by Radiology. Impression: Mild mesenteric edema and mesenteric fluid accumulation is seen within the right lateral Abdomen. Possible mild concentric wall edema is noted involving the distal small bowel loop within the right upper pelvis. If clinically indicated correlate with follow-up CT utilizing opaque oral contrast versus CT or MR enterography. A small to moderate amount of free fluid is noted within the cul- de-sac and right posterior adnexa. There is a very small amount of free fluid within the left adnexa. Colonic diverticulosis is noted without definite evidence of acute diverticulitis. Minimal splenomegaly. - Medications Given in the ED: ED Medications Discontinued Medications Generic Name Dose Route Start Last Admin Trade Name Freq PRN Reason Stop Dose Admin Hydromorphone HCl 0.5 mg 11/03/18 15:26 11/03/18 15:37 Dilaudid Injection - IVPUSH 11/03/18 15:27 0.5 mg ONCE ONE Administration Hydromorphone HCl 1 mg 11/03/18 15:55 11/03/18 16:00 Dilaudid Injection - IVPUSH 11/03/18 15:56 1 mg ONCE ONE Administration Sodium Chloride 1,000 mls @ 1,000 mls/hr 11/03/18 15:25 11/03/18 15:37 Normal Saline - IV 11/03/18 16:24 1,000 mls/hr ASDIR STA Administration Ketorolac Tromethamine 30 mg 11/03/18 15:47 11/03/18 15:54 Toradol Injection - IVPUSH 11/03/18 15:48 30 mg ONCE ONE Administration Ondansetron HCl 8 mg 11/03/18 15:25 11/03/18 15:37 Zofran Injection IVPB 11/03/18 15:26 8 mg ONCE ONE Administration <Candice Lozano - Last Filed: 11/03/18 23:06> - LABORATORY CBC & Chemistry Diagram: 11/03/18 15:30 11/03/18 15:30 - ADDITIONAL ORDERS Additional order review: Laboratory Results 11/03/18 11/03/18 11/03/18 15:30 15:27 15:26 Sodium 138 Potassium 3.8 Chloride 102 Carbon Dioxide 30 Anion Gap 6 L BUN 10 Creatinine 0.8 Creat Clearance w eGFR > 60 Random Glucose 92 Calcium 9.7 Total Bilirubin 0.3 AST 27 ALT 31 Alkaline Phosphatase 57 Total Protein 7.6 Albumin 4.1 Lipase 129 Beta HCG, Quant 5.5 Serum , Qual Indeterminate Urine Color Straw Urine Appearance Clear Urine pH 7.0 Ur Specific [place] 1.004 L Urine Protein Negative Urine Glucose (UA) Negative Urine Ketones Negative Urine Blood Negative Urine Nitrite Negative Urine Bilirubin Negative Urine Urobilinogen Negative Ur Leukocyte Esterase Trace Urine WBC (Auto) 2 Urine RBC (Auto) <1 Ur Epithelial Cells Rare Urine Mucus Rare 11/03/18 15:30 RBC 4.65 MCV 88.9 MCHC 35.3 RDW 13.6 MPV 9.2 D Neutrophils % 57.2 D Lymphocytes % 35.2 D Monocytes % 5.1 Eosinophils % 1.2 D Basophils % 1.3 D - Medications Given in the ED: ED Medications Discontinued Medications Generic Name Dose Route Start Last Admin Trade Name Freq PRN Reason Stop Dose Admin Hydromorphone HCl 0.5 mg 11/03/18 15:26 11/03/18 15:37 Dilaudid Injection - IVPUSH 11/03/18 15:27 0.5 mg ONCE ONE Administration Hydromorphone HCl 1 mg 11/03/18 15:55 11/03/18 16:00 Dilaudid Injection - IVPUSH 11/03/18 15:56 1 mg ONCE ONE Administration Sodium Chloride 1,000 mls @ 1,000 mls/hr 11/03/18 15:25 11/03/18 15:37 Normal Saline - IV 11/03/18 16:24 1,000 mls/hr ASDIR STA Administration Ketorolac Tromethamine 30 mg 11/03/18 15:47 11/03/18 15:54 Toradol Injection - IVPUSH 11/03/18 15:48 30 mg ONCE ONE Administration Ondansetron HCl 8 mg 11/03/18 15:25 11/03/18 15:37 Zofran Injection IVPB 11/03/18 15:26 8 mg ONCE ONE Administration <Anne Warren - Last Filed: 11/04/18 00:00> Medical Decision Making - Medical Decision Making 11/03/18 23:58 transvaginal US negative for torsion,negative for ruptured ovarian cysts consulted surgery Dr Ochoa will OBS med/surg <Anne Warren - Last Filed: 11/04/18 00:00> *DC/Admit/Observation/Transfer - Attestations Scribe Attestion: 11/03/18 21:28 Documentation prepared by Candice Lozano, acting as medical transcription editor for Td Chandler MD. <Candice Lozano - Last Filed: 11/03/18 23:06> - Discharge Dispostion Decision to Admit order: Yes <Anne Warren - Last Filed: 11/04/18 00:00> Diagnosis at time of Disposition: Left lateral abdominal pain, Enteritis - Discharge Dispostion Condition at time of disposition: Good - Referrals Referrals: Dick Hollins MD [Primary Care Provider] - - Patient Instructions - Post Discharge Activity
[2018-11-03 23:58] LABS: BASO % 0.7 % (0-2.0); EOS % 1.1 % (0-4.5); HEMATOCRIT 37.3 % (32.4-45.2); HEMOGLOBIN 13.2 GM/dL (10.7-15.3); LYMPH % 33.3 % (8-40); MCH 31.5 pg (25.7-33.7); MCHC 35.3 g/dl (32.0-36.0); MEAN CELL VOLUME 89.3 fl (80-96); MEAN PLT VOLUME 8.7 fl (7.5-11.1); MONO % 5.9 % (3.8-10.2); PLATELET COUNT 211 K/MM3 (134-434); RBC 4.17 M/mm3 (3.60-5.2); RDW 13.1 % (11.6-15.6); WHITE BLOOD COUNT 6.7 K/mm3 (4.0-10.0)
--- NOTE | 2018-11-04 00:13 | PN ---
Teaching Attending Note Name of Resident: Kingsley Rizvi ATTENDING PHYSICIAN STATEMENT I saw and evaluated the patient. I reviewed the resident's note and discussed the case with the resident. I agree with the resident's findings and plan as documented. SUBJECTIVE: Patient is a 48-year-old woman with a past medical history of pneumothorax, anxiety, endometrial ablation and depression, who presents to the ER with sudden onset of left-sided abdominal pain and left flank pain. Patient describes the pain as constant and associated with nausea, but no vomiting. She denies experiencing these symptoms before. She denies any history of kidney stones. Patient is no longer menstruating. She reports having a recent colonoscopy in March that was normal. She denies any fever, chills, vomiting, diarrhea, dysuria, frequency, or SOB. Pain improved with analgesics in the ER. OBJECTIVE: Alert Vital Signs Period Temp Pulse Resp BP Sys/Mays Pulse Ox Last 24 Hr 98.0 F-98.4 F 49-62 18-22 110-161/61-89 98-100 HEENT: No Jaundice, eye redness or discharge, PERRLA, EOMI. Normocephalic, atraumatic. External ears are normal and hearing is grossly intact. No nasal discharge. Neck: Supple, nontender. No palpable adenopathy or thyromegaly. No JVD Chest: Good effort. Clear to auscultation and percussion. Heart: Regular. No S3, rub or murmur Abdomen: Not distended, soft, nontender and no HSM. No rebound or guarding. Normoactive bowel sounds. Ext: Peripheral pulses intact. No leg edema. Skin: Warm and dry. No petechiae, rash or ecchymosis. Neuro: Alert. Oriented x3. CN 2-12 grossly intact. Sensation grossly intact in all four extremities and DTR are symmetric. Home Medications Medication Instructions Recorded Sertraline HCl [Zoloft -] 250 mg PO DAILY 02/11/14 clonazePAM [KlonoPIN] 0.5 mg PO DAILY 01/18/15 Chlorzoxazone [Lorzone] 500 mg PO BID PRN 12/13/16 Clonazepam [Klonopin] 1 mg PO HS 12/13/16 Gabapentin [Neurontin -] 400 mg PO BID 12/13/16 Oxymorphone HCl [Opana ER] 30 mg PO BID 12/13/16 Abnormal Lab Results 11/03/18 11/03/18 15:26 15:30 Anion Gap 6 L Ur Specific [place] 1.004 L ASSESSMENT AND PLAN: 1. Abdominal Pain - CT scan of abdomen with IV contrast showed mild mesenteric edema and mesenteric fluid accumulation within the right lateral Abdomen. Possible mild concentric wall edema is noted involving the distal small bowel loop within the right upper pelvis. Transvaginal sonogram was negative. May have nonspecific or viral enteritis. Patient is feeling better, is afebrile and has no leukocytosis. Will monitor for emergence of fever and leukocytosis; keep her NPO, give IV fluids and morphine PRN and consult GI. May obtain CT with oral contrast if symptoms re-emerge. 2. DVT prophylaxis - Lovenox 40 mg SQ q 24 hours. 3. Advance directives - Full code
[2018-11-04] MEDS ORDERED: ACETAMINOPHEN 325 MG TABLET (FP) PO PRN (00:24)
[2018-11-04] MEDS ORDERED: MORPHINE SULFATE 2 MG/ML VIAL IVPUSH PRN (00:24)
[2018-11-04] MEDS ORDERED: ONDANSETRON 4 MG/2 ML VIAL IVPUSH PRN (00:39)
--- NOTE | 2018-11-04 00:40 | HP ---
CHIEF COMPLAINT: Abdominal pain PCP: Dr. Hollins HISTORY OF PRESENT ILLNESS: Patient is a 48 y/o F w/ PMHx depression, fibromyalgia, PTX, ovarian cyst excision, endometrial ablation, p/w sudden onset excruciating 10/10 L sided abdominal pain radiating to her back. Accompanied by nausea. No vomiting/ diarrhea. No CP, no SOB, no ATWOOD, no dizziness, no dysuria, no hematuria, no hematochezia, no melena. Received toradol, dilaudid, and zofran in ED, pain resolved to 2-3/10. Comfortable at time of encounter. CT a/p w/ IV contrast w/o PO contrast demonstrated mild mesenteric edema, concentric wall edema involving distal bowel loop, diverticulosis w/o diverticulitis, and small amount of pelvic free fluid. TVUS demonstrated no ovarian cyst and small amount of pelvic free fluid. Qualitative hCG indeterminate, quantitative hCG 5.5, labs otherwise wnl. Surgery was contacted and recommended observation. ER course was notable for: (1) (2) (3) Recent Travel: PAST MEDICAL HISTORY: As per HPI PAST SURGICAL HISTORY: As per HPI Social History: Smoking: Alcohol: Drugs: Family History: Allergies codeine [Codeine] Allergy (Severe, Verified 11/03/18 15:16) Rash HOME MEDICATIONS: Home Medications Medication Instructions Recorded Sertraline HCl [Zoloft -] 250 mg PO DAILY 02/11/14 clonazePAM [KlonoPIN] 0.5 mg PO DAILY 01/18/15 Chlorzoxazone [Lorzone] 500 mg PO BID PRN 12/13/16 Clonazepam [Klonopin] 1 mg PO HS 12/13/16 Gabapentin [Neurontin -] 400 mg PO BID 12/13/16 Oxymorphone HCl [Opana ER] 30 mg PO BID 12/13/16 REVIEW OF SYSTEMS As per HPI PHYSICAL EXAMINATION Vital Signs - 24 hr 11/03/18 11/03/18 15:13 21:12 Temperature 98.4 F 98.0 F Pulse Rate 62 Pulse Rate [ 49 L Left Radial] Respiratory 22 H 18 Rate Blood Pressure 161/89 Blood Pressure 110/61 [Left Arm] O2 Sat by Pulse 100 98 Oximetry (%) GENERAL: A&Ox3, NAD HEAD: NC/AT EYES: PERRLA, EOMI EARS, NOSE, THROAT: MMM NECK: Normal range of motion, supple without lymphadenopathy, JVD, or masses. LUNGS: CTA b/l HEART: RRR no m/r/g ABDOMEN: +bs, soft, NT, ND MUSCULOSKELETAL: Normal range of motion at all joints. No bony deformities or tenderness. No CVA tenderness. UPPER EXTREMITIES: 2+ pulses, warm, well-perfused. No cyanosis. No clubbing. No peripheral edema. LOWER EXTREMITIES: 2+ pulses, warm, well-perfused. No calf tenderness. No peripheral edema. NEUROLOGICAL: boiler/chiller technician, motor, sensory systems w/o focal deficit PSYCHIATRIC: Cooperative. Good eye contact. Appropriate mood and affect. SKIN: Warm, dry, normal turgor, no rashes or lesions noted, normal capillary refill. Laboratory Results - last 24 hr 11/03/18 11/03/18 11/03/18 15:26 15:27 15:30 WBC 8.2 RBC 4.65 Hgb 14.6 Hct 41.4 MCV 88.9 MCH 31.4 MCHC 35.3 RDW 13.6 Plt Count 256 MPV 9.2 D Absolute Neuts (auto) 4.7 Neutrophils % 57.2 D Lymphocytes % 35.2 D Monocytes % 5.1 Eosinophils % 1.2 D Basophils % 1.3 D Nucleated RBC % 0 Sodium Potassium Chloride Carbon Dioxide Anion Gap BUN Creatinine Creat Clearance w eGFR Random Glucose Calcium Total Bilirubin AST ALT Alkaline Phosphatase Total Protein Albumin Lipase Beta HCG, Quant Serum , Qual Indeterminate Urine Color Straw Urine Appearance Clear Urine pH 7.0 Ur Specific [place] 1.004 L Urine Protein Negative Urine Glucose (UA) Negative Urine Ketones Negative Urine Blood Negative Urine Nitrite Negative Urine Bilirubin Negative Urine Urobilinogen Negative Ur Leukocyte Esterase Trace Urine WBC (Auto) 2 Urine RBC (Auto) <1 Ur Epithelial Cells Rare Urine Mucus Rare 11/03/18 11/03/18 15:30 23:53 WBC 6.7 RBC 4.17 Hgb 13.2 Hct 37.3 MCV 89.3 MCH 31.5 MCHC 35.3 RDW 13.1 Plt Count 211 MPV 8.7 Absolute Neuts (auto) 4.0 Neutrophils % 59.0 Lymphocytes % 33.3 Monocytes % 5.9 Eosinophils % 1.1 Basophils % 0.7 Nucleated RBC % 0 Sodium 138 Potassium 3.8 Chloride 102 Carbon Dioxide 30 Anion Gap 6 L BUN 10 Creatinine 0.8 Creat Clearance w eGFR > 60 Random Glucose 92 Calcium 9.7 Total Bilirubin 0.3 AST 27 ALT 31 Alkaline Phosphatase 57 Total Protein 7.6 Albumin 4.1 Lipase 129 Beta HCG, Quant 5.5 Serum , Qual Urine Color Urine Appearance Urine pH Ur Specific [place] Urine Protein Urine Glucose (UA) Urine Ketones Urine Blood Urine Nitrite Urine Bilirubin Urine Urobilinogen Ur Leukocyte Esterase Urine WBC (Auto) Urine RBC (Auto) Ur Epithelial Cells Urine Mucus ASSESSMENT/PLAN: 48 y/o F w/ PMHx depression, fibromyalgia, PTX, ovarian cyst excision, endometrial ablation, p/w sudden onset 10/10 L abdominal pain. Significant resolution of symptoms on pain medication in ED. Non-tender abdomen at time of encounter. Surgery recommends observation. #abd pain -equivocal CT demonstrating mesenteric edema and pelvic free fluid, no PO contrast on that study -consider re-imaging w/ PO and IV contrast or MR enterography -r/o mesenteric ischemia -no signs of enteritis -NPO -LR @ 100 -morphine 2 q4 PRN for pain 6-10 -tylenol 650 q4 PRN for pain 1-5 -Zofran 4q4 PRN for nausea -surgery consulted -GI consulted #FEN -LR @ 100 -monitor and replete electrolytes -NPO at this time #PPx -DVT: SCDs, no pharmacologic AC at this time -GI: not indicated #code -full #dispo -obs Visit type - Emergency Visit Emergency Visit: Yes Care time: The patient presented to the Emergency Department on the above date and was hospitalized for further evaluation of their emergent condition. - New Patient This patient is new to me today: Yes Date on this admission: 11/04/18 - Critical Care Critical Care patient: No
[2018-11-04] MEDS: LACTATED RINGERS SOLUTION 1,000 ML IV SCH ×2 (00:53→06:58)
[2018-11-04 07:30] LABS: BASO % 0.7 % (0-2.0); EOS % 2.2 % (0-4.5); HEMATOCRIT 39.4 % (32.4-45.2); HEMOGLOBIN 13.2 GM/dL (10.7-15.3); LYMPH % 36.2 % (8-40); MCH 30.3 pg (25.7-33.7); MCHC 33.4 g/dl (32.0-36.0); MEAN CELL VOLUME 90.5 fl (80-96); MONO % 6.5 % (3.8-10.2); NEUT % 54.4 % (42.8-82.8); PLATELET COUNT 189 K/MM3 (134-434); RBC 4.36 M/mm3 (3.60-5.2); RDW 13.4 % (11.6-15.6); WHITE BLOOD COUNT 5.2 K/mm3 (4.0-10.0)
[2018-11-04 07:38] LABS: ANION GAP 5 MMOL/L (8-16); BLOOD UREA NITROGEN 8 mg/dL (7-18); CALCIUM 8.8 mg/dL (8.5-10.1); CHLORIDE 108 mmol/L (98-107); CO2 30 mmol/L (21-32); CREATININE 0.8 mg/dL (0.55-1.3); GLUCOSE,RANDOM 87 mg/dL (74-106); MAGNESIUM 1.9 mg/dL (1.8-2.4); PHOSPHOROUS 3.8 mg/dL (2.5-4.9); POTASSIUM 4.8 mmol/L (3.5-5.1); SODIUM 143 mmol/L (136-145)
--- NOTE | 2018-11-04 08:29 | PN ---
Progress Note (short form) - Note Progress Note: surgery 48f with psychiatric history, previous surgery for clinic director pain, presents with normal labs and left sided pain. Ct for abd pain done without oral contrast and shows small fluid and mesenteric edema. u/s without clinic director pathology. pt remains afebrile overnight. morning labs pending. Plan- recommend repeat ct with oral contrast which is standard of care for abd pain. follow labs. follow gi input.
[2018-11-04 08:31] LABS: PROTHROMBIN TIME (PATIENT) 11.8 SEC (9.7-13.0)
[2018-11-04 08:33] LABS: ACTIVATED PTT 31.1 SECONDS (25.2-36.5)
[2018-11-04] MEDS ORDERED: CHLORZOXAZONE 500 MG PO PRN (09:34)
[2018-11-04] MEDS ORDERED: SERTRALINE HCL 50 MG TABLET (FP) PO SCH (10:00)
[2018-11-04] MEDS ORDERED: GABAPENTIN 400 MG CAPSULE (FP) PO SCH (10:00)
[2018-11-04] MEDS ORDERED: clonazePAM 0.5 MG TABLET PO SCH (10:00)
--- NOTE | 2018-11-04 10:06 | PN ---
Progress Note, Physician Chief Complaint: Pt sitting in bed in no acute distress, tearful, reports she wants to go home and upset about whats going on. She reports pain subsided and its more just generalized abd soreness now. c/o mild nausea. Denies any chest pain, sob, vomiting, diarrhea - Current Medication List Current Medications: Active Medications Acetaminophen (Tylenol -) 650 mg PO Q4H PRN PRN Reason: PAIN LEVEL 1-5 Clonazepam (Klonopin -) 0.5 mg PO DAILY [facility] Last Admin: 11/04/18 09:55 Dose: 0.5 mg Gabapentin (Neurontin -) 400 mg PO BID [facility] Last Admin: 11/04/18 09:55 Dose: 400 mg Lactated Ringer's (Lactated Ringers Solution) 1,000 mls @ 100 mls/hr IV ASDIR [facility] Last Admin: 11/04/18 06:58 Dose: 100 mls/hr Non-Formulary Medication (Chlorzoxazone [Lorzone]) 500 mg PO BID PRN PRN Reason: PAIN Ondansetron HCl (Zofran Injection) 4 mg IVPUSH Q4H PRN PRN Reason: NAUSEA AND/OR VOMITING Sertraline HCl (Zoloft -) 250 mg PO DAILY [facility] - Objective Vital Signs: Vital Signs Temperature 98.2 F 11/04/18 04:01 Pulse Rate 49 L 11/04/18 04:01 Respiratory Rate 18 11/04/18 02:03 Blood Pressure 129/60 11/04/18 04:01 O2 Sat by Pulse Oximetry (%) 98 11/04/18 04:01 Constitutional: Yes: Well Nourished, No Distress, Anxious Cardiovascular: Yes: WNL, Regular Rate and Rhythm Respiratory: Yes: WNL, Regular, CTA Bilaterally Gastrointestinal: Yes: Normal Bowel Sounds, Soft. No: Distention, Tenderness, Tenderness, Rebound, Vomiting Genitourinary: Yes: WNL Musculoskeletal: Yes: WNL Extremities: Yes: WNL Edema: No Neurological: Yes: WNL, Alert, Oriented Psychiatric: Yes: WNL, Alert, Oriented Labs: CBC, BMP 11/04/18 06:20 11/04/18 06:20 INR, PTT INR 1.00 (0.83-1.09) 11/04/18 06:20 Problem List - Problems (1) Left lateral abdominal pain Code(s): R10.9 - UNSPECIFIED ABDOMINAL PAIN
[2018-11-04 14:29] VITALS: BP 122/64; PULSE 50; TEMP 98.7
--- NOTE | 2018-11-04 14:35 | DS ---
Physical Examination Vital Signs: Vital Signs Temperature 98.7 F 11/04/18 14:00 Pulse Rate 50 L 11/04/18 14:00 Respiratory Rate 17 11/04/18 14:00 Blood Pressure 122/64 11/04/18 14:00 O2 Sat by Pulse Oximetry (%) 98 11/04/18 10:00 Constitutional: Yes: Well Nourished, No Distress, Anxious Cardiovascular: Yes: WNL, Regular Rate and Rhythm. No: Murmur Respiratory: Yes: WNL, Regular, CTA Bilaterally. No: Accessory Muscle Use, SOB , Tachypnea, Wheezes Gastrointestinal: Yes: Normal Bowel Sounds, Soft. No: Distention, Tenderness, Tenderness, Rebound, Vomiting Renal/: Yes: WNL Musculoskeletal: Yes: WNL Extremities: Yes: WNL Edema: No Neurological: Yes: WNL, Alert, Oriented Psychiatric: Yes: WNL, Alert, Oriented Labs: CBC, BMP 11/04/18 06:20 11/04/18 06:20 Discharge Summary Reason For Visit: LEFT LATERAL ABDOMINAL PAIN Current Active Problems Enteritis (Acute) Left lateral abdominal pain (Acute) Hospital Course: 48 year old female admitted for evaluation of left sided abdominal pain. CT abd/ pelvis without oral contrast shows small fluid and mesenteric edema. Vaginal US without PROTOZOOLOGIST pathology. All labs unremarkable. Pt evaluated by surgery and GI. Repeat CT with oral contrast shows improvement of mesenteric edema, no other acute findings. Suspect possible resolving enteritis. Pt tolerating full liquids. Pt reports abd pain subsided, denies n/v. Advise to continue full liquids for today and advance as tolerated. Pt is medically stable for discharge from hospital. Outpt gi follow up recommended. 32 minutes spent in discharge planning Condition: Good - Instructions Diet, Activity, Other Instructions: activity as tolerated full liquid diet , advance as tolerated tomorrow follow up with your GI, PCP Referrals: Dick Hollins MD [Primary Care Provider] - 1 Week Disposition: HOME - Home Medications Comprehensive Discharge Medication List: Ambulatory Orders Sertraline HCl [Zoloft -] 250 mg PO DAILY 02/11/14 clonazePAM [KlonoPIN] 0.5 mg PO DAILY 01/18/15 Chlorzoxazone [Lorzone] 500 mg PO BID PRN 12/13/16 Clonazepam [Klonopin] 1 mg PO HS 12/13/16 Gabapentin [Neurontin -] 400 mg PO BID 12/13/16 Oxymorphone HCl [Opana ER] 30 mg PO BID 12/13/16
--- NOTE | 2018-11-04 14:41 | CON.GI ---
Consult Consult Specialty:: Gastroenterology Reason for Consultation:: Abdominal pain - History of Present Illness History of Present Illness: 48 yo female h/o depression, fibromyalgia, endometrial ablation, constipation presents with abdominal pain and nausea x 2 days. Pt reports nausea 2 days ago with "upset stomach" feeling, went to work yesterday and ate banana and yogurt and subsequently developed severe diffuse abdominal pain, mostly epigastric with some radiation to the back. She describes pain as severe, 10/10, denies prior similar symptoms. She reports associated nausea, denies vomiting or diarrhea. Denies fever/chills. Denies eating undercooked or outside food. Pt reports longstanding constipation at baseline, was following with Dr. Dueñas (GI) and states she recently had a colonoscopy ?03/2018, reportedly normal (report not currently available for review). Had been taking linzess without response per pt, now takes dulcolax once/week to move bowels, last had bm on Friday, no blood. Reports occasional mild heartburn with good relief on prevacid taken as needed. Reports prior remote EGD. Currently feeling better, near baseline, abdominal pain significantly improved, pending repeat contrast enhanced CT, wants to go home. Tolerated forina for breakfast this am. - Past Medical History Gastrointestinal: Yes: Other (IBS) Renal/: Yes: UTI Rheumatology: Yes: Fibromyalgia - Past Surgical History Past Surgical History: Yes: Tonsillectomy - Alcohol/Substance Use Hx Alcohol Use: No History of Substance Use: reports: None - Smoking History Smoking history: Current every day smoker Have you smoked in the past 12 months: Yes Aproximately how many cigarettes per day: 10 If you are a former smoker, when did you quit?: 2 weeks ago - Social History ADL: Independent History of Recent Travel: No Home Medications - Allergies Allergies/Adverse Reactions: Allergies Allergy/AdvReac Type Severity Reaction Status Date / Time codeine [Codeine] Allergy Severe Rash Verified 11/03/18 15:16 - Home Medications Home Medications: Ambulatory Orders Sertraline HCl [Zoloft -] 250 mg PO DAILY 02/11/14 clonazePAM [KlonoPIN] 0.5 mg PO DAILY 01/18/15 Chlorzoxazone [Lorzone] 500 mg PO BID PRN 12/13/16 Clonazepam [Klonopin] 1 mg PO HS 12/13/16 Gabapentin [Neurontin -] 400 mg PO BID 12/13/16 Oxymorphone HCl [Opana ER] 30 mg PO BID 12/13/16 Family Disease History - Family Disease History Family Disease History: Diabetes: Mother, Heart Disease: Father, Mother, Other: Sister (MS) Review of Systems - Review of Systems Constitutional: reports: No Symptoms Cardiovascular: reports: No Symptoms Respiratory: reports: No Symptoms Gastrointestinal: reports: Abdominal Pain, Nausea Physical Exam-GI Vital Signs: Vital Signs Temperature 98.7 F 11/04/18 14:00 Pulse Rate 50 L 11/04/18 14:00 Respiratory Rate 17 11/04/18 14:00 Blood Pressure 122/64 11/04/18 14:00 O2 Sat by Pulse Oximetry (%) 98 11/04/18 10:00 Constitutional: Yes: Well Nourished, No Distress (appears comfortable) Eyes: Yes: WNL Cardiovascular: Yes: WNL, Regular Rate and Rhythm Respiratory: Yes: WNL, CTA Bilaterally Gastrointestinal Inspection: Yes: WNL (Abd soft, mildly tender in epigatrium on deep palpation, non distended, +bs) Edema: No Labs: CBC, BMP 11/04/18 06:20 11/04/18 06:20 INR, PTT INR 1.00 (0.83-1.09) 11/04/18 06:20 Imaging - Results Cat Scan: Report Reviewed, Image Reviewed Problem List - Problems (1) Abdominal pain Code(s): R10.9 - UNSPECIFIED ABDOMINAL PAIN Assessment/Plan 48 yo female h/o chronic constipation, depression, fibromyalgia presents with sudden onset abdominal pain with CT (noncontrast enhanced) evidence of possible thickened distal small bowel loops. Unclear exact etiology, possibly self limiting gastroenteritis vs hepatobiliary vs functional, though no diarrhea and now clinically improved. -Await results of repeat contrast enhanced CT abd/pelvis for further evaluation r/o bowel wall thickening or other pathology -Will need to retrieve recent colonoscopy report if possible -Diet as tolerated -Pending clinical course, may consider endoscopic evaluation though pt is anxious to be discharged. Pending dispostion, recommend outpatient GI follow up (offered to help arrange appt however she states she will decide and schedule her own). Discussed with medicine team.
--- NOTE | 2018-11-04 15:51 | CONS ---
DATE OF CONSULTATION: 11/04/2018 REASON FOR CONSULTATION: Abdominal pain; abnormal CAT scan. The patient was seen and examined at noon. BRIEF HISTORY: This is a 48-year-old female on multiple psychiatric medications. She has a history of previous gynecologic surgery for ovarian cyst disease and endometrial ablation. She presented to the [facility] emergency room complaining of 10/10 left-sided abdominal pain. She required multiple doses of narcotics. She had a CAT scan of her abdomen and pelvis done with IV contrast that suggested mesenteric edema and some thickening of some small bowel loops. The patient was admitted for observation and was noted to have normal labs. She is being seen and examined on the surgical floor. She currently feels better. She is crying and wants to go home. She denies nausea or vomiting. PAST MEDICAL HISTORY: Significant for depression, fibromyalgia, ovarian cyst disease. HOME MEDICATIONS: Zoloft, Klonopin, Neurontin, oxymorphone and chlorzoxazone. SOCIAL HISTORY: Positive for tobacco. She has been encouraged to quit. PAST SURGICAL HISTORY: Laparoscopies for ovarian cysts as well as tonsillectomy. ALLERGIES: CODEINE. FAMILY HISTORY: Negative for malignancy in the immediate family. REVIEW OF SYSTEMS: General: Denies fatigue. Cardiac: Denies chest pain. Respiratory: Denies shortness of breath. Gastrointestinal: As stated in the HPI. Denies nausea, vomiting, diarrhea, blood in the stool or recent weight loss. Genitourinary: Denies dysuria. Musculoskeletal: Denies joint pain. Psychiatric: Admits to anxiety. PHYSICAL EXAMINATION: General: This is a well-developed, well-nourished 48-year-old female in no distress. Abdomen: Soft. There is minimal distention. She has minimal generalized tenderness without rebound or guarding. She has well-healed surgical scars without obvious hernia. EXTREMITIES: Her extremities have no edema. REVIEW OF LABORATORY DATA: Her white blood cell count has been repeated three times and has been normal on all three occasions without a shift. Her chemistries are unremarkable. Her urinalysis is unremarkable. ASSESSMENT: This is a 48-year-old female with severe abdominal pain on the left side that has resolved. She is on multiple psychiatric medications and has had ovarian cystic disease in the past. However, the description of her pain would make me concerned for a possible ischemic event that fixed itself, such as a possible internal hernia or twisting of her bowel. In either event, she is clinically well. I requested a repeat CAT scan with oral contrast since the first one was suboptimal without oral contrast. At the time of this dictation, that second study is now back and shows significant improvement. At this point, I recommend a trial of diet. There are no surgical contraindications for discharge. The patient should follow up with the Gastroenterology Service. She may need repeat imaging or endoscopies in the future but at this point, she has a nonsurgical abdomen and does not require exploratory surgery. DO KRISTA HUMPHRIES/[id number]
== END 2018-11-04 15:39 | disposition home or self-care (01) ==
LOC: JER 15:09 → JERBED 11-04 00:01 → J6S 11-04 03:33
PROVIDERS: ADMIT Internal Medicine; ATTEND Internal Medicine
DX: K52.9 Noninfective gastroenteritis and colitis, unspecified (principal); K59.09 Other constipation; M79.7 Fibromyalgia; F32.9 Major depressive disorder, single episode, unspecified; F17.210 Nicotine dependence, cigarettes, uncomplicated
CPT/HCPCS: 36415; 74176-TC; 74177-TC; 76830-TC; 80048; 80053; 81003; 81015; 83690; 83735; 84100; 84702; 84703; 85025; 85610; 85730; 86850; 86900; 86901; 87086; 99285-25; G0378; J7030; Q9967

== ENCOUNTER 2019-08-23 12:32 | Emergency (ER) | payer BC ==
--- NOTE | 2019-08-23 12:39 | PDOC ---
History of Present Illness - General Chief Complaint: Urinary Problem Stated Complaint: PAINFUL URINATION Time Seen by Provider: 08/23/19 12:36 History Source: Patient Exam Limitations: No Limitations - History of Present Illness Initial Comments: 08/23/19 12:38 48 yo female h/o depression, fibromyalgia, endometrial ablation, constipation presents with suprapubic abdominal pressure, dysuria, urgency and frequency and hematuria since yesterday. +nausea, no vomiting. no fever or chills. chronic constipation, no diarrhea. no trauma. 08/23/19 12:38 08/23/19 13:29 08/23/19 13:31 08/23/19 13:37 Past History - Past Medical History Allergies/Adverse Reactions: Allergies Allergy/AdvReac Type Severity Reaction Status Date / Time codeine [Codeine] Allergy Severe Rash Verified 11/03/18 15:16 Home Medications: Ambulatory Orders Sertraline HCl [Zoloft -] 250 mg PO DAILY 02/11/14 clonazePAM [KlonoPIN] 0.5 mg PO DAILY 01/18/15 Chlorzoxazone [Lorzone] 500 mg PO BID PRN 12/13/16 Clonazepam [Klonopin] 1 mg PO HS 12/13/16 Gabapentin [Neurontin -] 400 mg PO BID 12/13/16 Oxymorphone HCl [Opana ER] 30 mg PO BID 12/13/16 Cephalexin Monohydrate [Keflex -] 500 mg PO BID 5 Days #10 capsule 08/23/19 Phenazopyridine HCl [Pyridium -] 100 mg PO BID 3 Days #9 tablet 08/23/19 Anemia: No Asthma: No Cancer: No Cardiac Disorders: No CVA: No COPD: No CHF: No Dementia: No Diabetes: No GI Disorders: Yes (IBS) Disorders: No HTN: No Hypercholesterolemia: No Liver Disease: No Psychiatric Problems: Yes (ANXIETY) Seizures: No Thyroid Disease: No - Surgical History Abdominal Surgery: No (CYST REMOVED FROM OVARY) Appendectomy: No Cardiac Surgery: No Cholecystectomy: No Lung Surgery: No Neurologic Surgery: No Orthopedic Surgery: No - Suicide/Smoking/Psychosocial Hx Smoking Status: No Smoking History: Current every day smoker Have you smoked in the past 12 months: Yes Number of Cigarettes Smoked Daily: 10 If you are a former smoker, when did you quit?: 2 weeks ago 'Breaking Loose' booklet given: 11/04/18 Hx Alcohol Use: No Drug/Substance Use Hx: No Substance Use Type: None Hx Substance Use Treatment: No Review of Systems - Review of Systems Comments:: 08/23/19 13:29 Review of systems Constitutional: no fevers or chills. No weakness HEENT: no headache or dizziness. No congestion. CVS: no cp or syncope. Resp: no sob. No cough. Gastrointestinal: +abdominal pain, +nausea, no vomiting. no flank pain. No diarrhea. +chronic constipation. Genitourinary: +dysuria, hematuria. +urgency and frequency. no vaginal bleeding. no discharge MUSCULOSKELETAL: No joint pain and swelling. No neck or back pain. +chronic myalgias. SKIN: no redness or skin changes, no discharge, no rash. No wounds. Hematologic: no easy bruising/bleeding. NEUROLOGIC: No headache, dizziness, LOC or altered mental status. No weakness, numbness or tingling. Psych: +h/o anxiety or depression Allergic/Immunologic: codeine allergies All other systems reviewed and negative, or as documented in HPI. 08/23/19 13:31 08/23/19 13:32 08/23/19 13:37 *Physical Exam - Physical Exam Comments: 08/23/19 13:31 Physical exam General: Well appearing, awake and alert, NAD. HEENT: NCAT, PERRL, EOMI, clear conjunctiva, anicteric, moist mucus membranes, clear oropharynx, no oral lesions.. Neck: neck supple, FROM Resp: CTAB, normal and even respirations, no respiratory distress CVS: RRR, no murmurs, 2+ peripheral pulses throughout, no peripheral edema Abdomen: soft, nondistended, +suprapubic Tenderness, no rebound or guarding. No CVAT. Back: nontender, normal inspection and ROM MSK: no edema, CRISTINA x4, ROM intact. No clubbing or cyanosis. normal bulk and tone. Neuro: alert, oriented appropriately; no focal neurologic deficits Psych: Calm and cooperative Skin: warm and well perfused, cap refill <2 sec, normal color 08/23/19 13:37 Medical Decision Making - Medical Decision Making 08/23/19 13:32 hpi as documented VS reviewed, wnl. no fever, nonotoxic appearing no systemic findings Vital Signs Temp Pulse Resp BP Pulse Ox 99.4 F 85 18 134/88 98 08/23/19 12:34 08/23/19 12:34 08/23/19 12:34 08/23/19 12:34 08/23/19 12:34 ddx renal colic, UTI, hemorrhagic cystitis, pyelonephritis no systemic features, no flank or significant abdominal tenderness to suggest pyelo UA with +leuk esterase and blood, with urinary sx with presentation, treat as cystitis, uncomplicated, with hemorrhagic component. well appearing otherwise doubt renal colic or ureteral colic, as no CVAT or s/s to suggest renal pathology. no indication for labs at this time or imaging. abx, keflex BID x 5 day course, f/u urine cultures f/u PMD, return precautions advised, pt verbalized understanding of impression and plan. All questions answered to patient's satisfaction and expressed understanding and comfort with this. At the time of discharge, the patient is alert, clinically improved, tolerating po and verbalizes understanding of instructions , satisfied with the care received and felt comfortable with the plan. Patient does not suffer from an acute life-threatening medical condition at this time and is safe for outpatient follow-up. 08/23/19 13:37 *DC/Admit/Observation/Transfer Diagnosis at time of Disposition: Urinary tract infection - Discharge Dispostion Disposition: HOME Condition at time of disposition: Good Decision to Admit order: No - Prescriptions Prescriptions: Cephalexin Monohydrate [Keflex -] 500 mg PO BID 5 Days #10 capsule Phenazopyridine HCl [Pyridium -] 100 mg PO BID 3 Days #9 tablet - Referrals Referrals: Dick Hollins MD [Primary Care Provider] - - Patient Instructions Printed Discharge Instructions: DI for Urinary Tract Infection (UTI), DI for Hematuria Additional Instructions: 1) Please follow-up with your primary care doctor in the next 1-2 days. Please call tomorrow for for any urgent issues. 2) You were given a copy of the tests performed today. Please bring the results with you and review them with your primary care doctor. Your urine test showed blood and signs of infection, please follow up on your urine culture for organism and antibiotic sensitivities. 3) If you have any worsening of symptoms or any other concerns please return to the ED immediately. Return if worsening symptoms including fevers, headache, vomiting, visual or hearing disturbances, abdominal pain, chest pain, shortness of breath, syncope, dehydration, inability to take things by mouth/vomiting, altered mental status, or worsening concerning symptoms. 4) Please continue taking your home medications as directed. your medications on discharge include Keflex twice a day x 5 days . side effects may include upset stomach, abdominal pain, vomiting, or diarrhea. do not drink alcohol with your medications. you should also take pyridium twice a day x 3 days maximum, this is to help with burning, can also turn your urine orange. Stay well hydrated and rest adequately. Make an appointment. If you cannot follow-up with your primary care doctor please return to the ED - Post Discharge Activity
[2019-08-23 12:41] VITALS: BP 134/88; PULSE 85; TEMP 99.4; BMI 22.1
[2019-08-23] MEDS ORDERED: IBUPROFEN 600 MG TABLET (FP) PO ONE ×2 (13:13→13:26)
[2019-08-23] MEDS ORDERED: CEPHALEXIN MONOHYDRATE 500 MG CAPSULE (UD) PO ONE (13:13)
[2019-08-23] MEDS ORDERED: PHENAZOPYRIDINE HCL 100 MG TABLET (FP) PO ONE (13:13)
[2019-08-23 13:17] LABS: EPITHELIAL CELLS FEW /hpf
[2019-08-23] MEDS ORDERED: PHENAZOPYRIDINE HCL 100 MG TABLET (FP) ONE (13:26)
[2019-08-23] MEDS ORDERED: CEPHALEXIN MONOHYDRATE 500 MG CAPSULE (UD) ONE (13:26)
== END 2019-08-23 13:49 | disposition home or self-care (01) ==
LOC: FER 12:32
DX: N39.0 Urinary tract infection, site not specified (principal); F32.9 Major depressive disorder, single episode, unspecified; K59.00 Constipation, unspecified; M79.7 Fibromyalgia
CPT/HCPCS: 81003; 81015; 84703; 87086; 99282-25

== ENCOUNTER 2022-08-14 11:49 | Emergency (ER) | payer BC, OTHER ==
[2022-08-14 12:12] VITALS: BP 123/88; PULSE 83; RESP 18; TEMP 99.3; BMI 23.3
[2022-08-14 12:26] LABS: EPITHELIAL CELLS FEW /hpf
[2022-08-14] MEDS ORDERED: ACETAMINOPHEN 325 MG TABLET (FP) PO ONE (12:46)
[2022-08-14] MEDS ORDERED: ACETAMINOPHEN 325 MG TABLET (FP) ONE (12:54)
== END 2022-08-14 13:01 | disposition home or self-care (01) ==
LOC: FER 11:49
DX: N39.0 Urinary tract infection, site not specified (principal); R31.9 Hematuria, unspecified
CPT/HCPCS: 81003; 81015; 87086; 99283-25

== ENCOUNTER 2022-10-30 20:20 | Emergency (ER) | payer BC ==
[2022-10-30] MEDS ORDERED: DEXAMETHASONE SOD PHOSPHATE 10 MG/1 ML VIAL IVPUSH ONE (20:25)
[2022-10-30 20:42] VITALS: BP 146/103; PULSE 51; RESP 18; TEMP 98.7; BMI 22.7
[2022-10-30] MEDS ORDERED: DEXAMETHASONE SOD PHOSPHATE 10 MG/1 ML VIAL ONE (20:51)
[2022-10-30 21:09] LABS: BASO % 0.7 % (0-2.0); EOS % 2.2 % (0-4.5); HEMATOCRIT 39.6 % (32.4-45.2); HEMOGLOBIN 13.4 GM/dL (10.7-15.3); MCH 29.1 pg (25.7-33.7); MCHC 33.8 g/dl (32.0-36.0); MEAN CELL VOLUME 85.9 fl (80-96); MEAN PLT VOLUME 8.7 fl (7.5-11.1); MONO % 7.4 % (3.8-10.2); NEUT % 55.7 % (42.8-82.8); PLATELET COUNT 244 10^3/uL (134-434); RBC 4.61 M/mm3 (3.60-5.2); RDW 12.7 % (11.6-15.6); WHITE BLOOD COUNT 6.7 K/mm3 (4.0-10.0)
[2022-10-30 21:29] LABS: ALBUMIN 3.5 g/dl (3.4-5.0); BLOOD UREA NITROGEN 12.5 mg/dL (7-18); CALCIUM 9.5 mg/dL (8.5-10.1)
[2022-10-30 21:33] LABS: CREATININE 0.8 mg/dL (0.55-1.3)
[2022-10-30 21:34] LABS: BILIRUBIN,TOTAL 0.2 mg/dL (0.2-1); TOT PROT 6.9 g/dl (6.4-8.2)
[2022-10-30 22:05] LABS: THROAT:GRP A STREP NOT DETECTED (NOTDETECTED)
[2022-10-30] MEDS ORDERED: KETOROLAC TROMETHAMINE 30 MG/1 ML VIAL IVPUSH ONE (22:45)
[2022-10-30] MEDS ORDERED: KETOROLAC TROMETHAMINE 30 MG/1 ML VIAL ONE (22:49)
== END 2022-10-30 22:55 | disposition home or self-care (01) ==
LOC: JER 20:20
PROC: 3E0333Z Introduction of Anti-inflammatory into Peripheral Vein, Percutaneous Approach (ICD-10-PCS; principal; 2022-10-30)
PROC: 3E0333Z Introduction of Anti-inflammatory into Peripheral Vein, Percutaneous Approach (ICD-10-PCS; 2022-10-30)
DX: J02.9 Acute pharyngitis, unspecified (principal)
CPT/HCPCS: 0241U-QW; 36415; 70491-TC; 80053; 84443; 85025; 87070; 87651; 93005; 93010; 99285-25; J1100

== ENCOUNTER 2024-01-21 20:08 | Emergency (ER) | payer BC ==
[2024-01-21 20:12] VITALS: BP 166/83; PULSE 61; RESP 17; TEMP 97.6; BMI 21.2
[2024-01-21] MEDS ORDERED: ONDANSETRON *ODT* 4 MG TABLET ONE (21:34)
[2024-01-21] MEDS: ONDANSETRON *ODT* 4 MG TABLET SL ONE (21:37)
== END 2024-01-21 21:43 | disposition home or self-care (01) ==
LOC: JER 20:08
DX: S06.0XAA Concussion with loss of consciousness status unknown, initial encounter (principal); S00.33XA Contusion of nose, initial encounter; W18.39XA Other fall on same level, initial encounter
CPT/HCPCS: 70450-TC; 70486-TC; 72125-TC; 99284-25; Q0162